=== PATIENT | female | born 1940 | race Caucasian/White ===

== ENCOUNTER 2021-09-12 01:13 | Inpatient (IN) | payer MEDICARE, MEDICAID ==
[~2021-09-12] VITALS: Ht 152.4 cm; Wt 68.0 kg
[~2021-09-12 01:13] MED LIST: ACET-1017 PO; AMLO1CAP10 PO; ATOR40TA72; CALC-157 PO; CARV-50 PO; DIVA-74 PO; DOCU100C40 PO; FLUT1DIS INH; HYDR-3965 PO; LACT1TAB21 PO; LEVO50TA8 PO; LORA-657 PO; MELA5TAB12 PO; NITR0.4T51 SL; OMEP-50 PO; OMEP20CA15 PO; PARO10TA85 PO; POLY119P2 PO; PRIM50TA27 PO; ROPI3TAB PO; TRAZ-251 PO; VIT D3
[2021-09-12 01:43] LABS: BASOPHILS # (AUTO) 0.1 X10'3 (0-0.2); BASOPHILS % (AUTO) 1.3 % (0-1); EOSINOPHILS # (AUTO) 0.1 X10'3 (0-0.9); EOSINOPHILS % (AUTO) 1.7 % (0-6); HEMATOCRIT 30.7 % (35.0-45.0); HEMOGLOBIN 9.9 g/dl (12.0-16.0); LYMPHOCYTES # (AUTO) 1.8 X10'3 (1.1-4.8); LYMPHOCYTES % (AUTO) 30.4 % (21-51); MEAN CORPUSCULAR HEMOGLOBIN 24.1 PG (27.0-31.0); MEAN CORPUSCULAR HGB CONC 32.2 g/dL (33.0-36.5); MEAN PLATELET VOLUME 7.9 FL (7.4-10.4); NEUTROPHILS # (AUTO) 3.1 X10'3 (1.8-7.7); NEUTROPHILS % (AUTO) 50.6 % (42-75); PLATELET COUNT 290 X10'3 (140-440); RED CELL DISTRIBUTION WIDTH 17.7 % (11.5-14.5)
[2021-09-12 01:57] LABS: ALANINE AMINOTRANSFERASE 86 U/L (12-78); ALBUMIN 2.4 G/DL (3.4-5.0); ALBUMIN/GLOBULIN RATIO 0.5 (1.1-1.5); ALKALINE PHOSPHATASE 163 IU/L (46-116); ANION GAP 5 (8-16); ASPARTATE AMINO TRANSFERASE 96 U/L (10-37); BILIRUBIN,DIRECT 0.3 MG/DL (0-0.3); BILIRUBIN,TOTAL 0.6 MG/DL (0.1-1.0); BLOOD UREA NITROGEN 28 MG/DL (7-18); BUN/CREATININE RATIO 30.4 (6.6-38.0); CALCIUM 8.4 MG/DL (8.5-10.1); CHLORIDE 91 MMOL/L (99-107); CREATININE 0.92 MG/DL (0.40-0.90); GLUCOSE 109 MG/DL (70-104); LIPASE 353 U/L (73-393); POTASSIUM 3.6 MMOL/L (3.5-5.1); SODIUM 122 MMOL/L (135-145); TOTAL CARBON DIOXIDE 25.9 MMOL/L (24-32); TOTAL PROTEIN 6.9 G/DL (6.4-8.2); eGFR 59 ML/MIN
[2021-09-12] MEDS ORDERED: acetaminophen 325mg tablet PO ONE (02:15)
[2021-09-12 02:51] LABS: TOTAL CELLS COUNTED 100
[2021-09-12 02:52] LABS: ANISOCYTOSIS 1+; PLATELET ESTIMATE NORMAL; POIKILOCYTOSIS 1+
[2021-09-12] MEDS ORDERED: morphine 4 MG/ML inj SYRINge IV ONE (03:00)
[2021-09-12] MEDS ORDERED: ondansetron/PF 4mg/2ml inj IV ONE (03:00)
[2021-09-12] MEDS ORDERED: normal saline 1000ml 1,000 ML IV ONE (03:00)
--- NOTE | 2021-09-12 03:00 | NUR ---
Patient's brief changed as it was soaked with urine. Patient cleaned into new brief, gown, and blue zoran placed underneath.
[2021-09-12] MEDS ORDERED: iohexol 350MG/ML 100ml bottle IV ONE (03:23)
--- NOTE | 2021-09-12 04:25 | NUR ---
Patient is comfortable and relaxed in room. Patient had stated experiencing 10/10 generalized pain, doctor notified and order given for morphine, zofran, and fluid replacement. Medications given. Patient's vital signs have been stable and monitored Q15 per stroke protocol. Will continue to monitor.
[2021-09-12] MEDS ORDERED: PER5325T PO (05:14)
[2021-09-12] MEDS ORDERED: CARV-50 PO (05:14)
[2021-09-12] MEDS ORDERED: CHOL400T57 PO (05:14)
[2021-09-12] MEDS ORDERED: LEVO50CA4 PO (05:14)
[2021-09-12] MEDS ORDERED: DIVA-74 PO (05:14)
[2021-09-12] MEDS ORDERED: OSC500T PO (05:14)
[2021-09-12] MEDS ORDERED: AMLO-139 PO (05:14)
[2021-09-12] MEDS ORDERED: DOCU100C40 PO (05:14)
[2021-09-12] MEDS ORDERED: ATOR40TA PO (05:14)
[2021-09-12] MEDS ORDERED: LORA10TA7 PO (05:14)
[2021-09-12] MEDS ORDERED: ROPI1TAB6 PO (05:14)
[2021-09-12] MEDS ORDERED: ASPI-1265 PO (05:14)
[2021-09-12] MEDS ORDERED: PRIM50TA27 PO (05:14)
[2021-09-12] MEDS ORDERED: MELA5TAB12 PO (05:14)
[2021-09-12] MEDS ORDERED: TRAZ150T78 PO (05:14)
[2021-09-12] MEDS ORDERED: PARO10TA85 PO (05:14)
[2021-09-12] MEDS ORDERED: POLY17PO10 PO (05:32)
[2021-09-12] MEDS ORDERED: FAMO20TA8 PO (05:32)
[2021-09-12] MEDS ORDERED: PRED5DRO23 RIGHTEYE (05:32)
[2021-09-12] MEDS ORDERED: NITR0.4T51 SL (05:32)
[2021-09-12] MEDS ORDERED: OMEP40CA21 PO (05:32)
[2021-09-12] MEDS ORDERED: FLUT1DIS20 INH (05:32)
[2021-09-12] MEDS ORDERED: mag hydrox/Alum hydrox/simeth 30ml oral suspension PO PRN (06:00)
[2021-09-12] MEDS ORDERED: bisacodyl 10mg suppository rectal RC PRN (06:00)
[2021-09-12] MEDS ORDERED: diphenhydrAMINE 50 mg/ml inj IV PRN (06:00)
[2021-09-12] MEDS ORDERED: ondansetron 4mg rapidly disintigrating tab PO PRN (06:00)
[2021-09-12] MEDS ORDERED: acetaminophen 325mg tablet PO PRN ×2 (06:00)
[2021-09-12] MEDS ORDERED: morphine 2 MG/ML inj. syringe IV PRN (06:00)
[2021-09-12] MEDS ORDERED: magnesium hydroxide 30ml (MOM) UD suspension PO PRN (06:00)
[2021-09-12] MEDS ORDERED: diphenhydrAMINE 25mg capsule PO PRN (06:00)
[2021-09-12 06:42] LABS: CLARITY,URINE SLIGHTLY CLOUDY (Clear); COLOR,URINE STRAW (Yellow); PROTEIN,URINE NEGATIVE (Neg); UA COLLECTION TYPE STRAIGHT CATH
[2021-09-12 06:43] LABS: GLUCOSE, URINE NEGATIVE (Neg); KETONES,URINE NEGATIVE (Neg); LEUKOCYTE ESTERASE ,URINE NEGATIVE (Neg); NITRITES, URINE POSITIVE (Neg); OCCULT BLOOD,URINE NEGATIVE (Neg); UROBILINOGEN,URINE 0.2 E.U/dL (0.2-1.0)
[2021-09-12 06:46] LABS: HEMOGLOBIN A1C 4.8 % (4.5-6.2)
[2021-09-12 06:48] LABS: BACTERIA,URINE 3+ /HPF (Neg); RBC,URINE 0-2 /HPF (0-2); SQUAMOUS EPITHELIAL CELL,UR FEW /LPF (FEW); WBC,URINE 0-4 /HPF (0-4)
[2021-09-12 07:02] LABS: CREATINE KINASE 138 U/L (26-192); PHOSPHORUS 2.5 MG/DL (2.3-4.5); VALPROATE 32 UG/ML (50-100)
[2021-09-12 07:23] LABS: PARTIAL THROMBOPLASTIN TIME 26 SECONDS (22-32)
[2021-09-12] MEDS: pantoprazole 40mg Tablet.DR PO SCH (07:30)
[2021-09-12] MEDS: docusate sod 100mg capsule PO SCH ×2 (08:00→08:55)
[2021-09-12] MEDS: heparin, porcine 5000 units/ml vial SQ SCH (08:55)
--- NOTE | 2021-09-12 09:00 | NUR ---
Pure wick in place for patient comfort, hygiene provided, patient repositioned, tolerated well, all safety measures in place.
[2021-09-12] MEDS: normal saline 1000ml 1,000 ML IV SCH ×2 (09:04→16:00)
--- NOTE | 2021-09-12 10:52 | NUR ---
dr obrien at bedside.
[2021-09-12] MEDS ORDERED: ROPI3TAB4 PO (12:29)
[2021-09-12] MEDS ORDERED: METO-292 PO (12:29)
[2021-09-12] MEDS ORDERED: OMEP20CA15 PO (12:29)
[2021-09-12] MEDS: morphine 2 MG/ML inj. syringe IV PRN (14:36)
[2021-09-12] MEDS ORDERED: AMLO-708 PO (14:37)
[2021-09-12] MEDS ORDERED: BENA40TA90 PO (14:37)
[2021-09-12] MEDS ORDERED: nitroGLYCERIN 0.4mg SUBLingual tab SL PRN (20:20)
[2021-09-12] MEDS ORDERED: polyethylene glycol 3350 17gm powd pack PO PRN (20:20)
[2021-09-12 21:00] VITALS: BP 110/50
[2021-09-12] MEDS: budesonide 0.5mg/2ml UD nebule IH SCH (21:00)
[2021-09-12] MEDS: albuterol 2.5 MG/3 ML nebule NEB SCH (21:00)
[2021-09-12] MEDS ORDERED: temazepam 15mg capsule PO PRN (21:00)
[2021-09-12] MEDS: ROPINIRole 1mg tablet PO SCH (21:00)
[2021-09-12] MEDS ORDERED: ROPINIRole 1mg tablet PO ONE (23:45)
[2021-09-12] MEDS: traZODone 150mg tablet PO SCH (23:59)
[2021-09-12] MEDS: metoclopramide 10mg tablet PO SCH (23:59)
[2021-09-13] VITALS (8 sets, daily range): BP systolic 80–155; BP diastolic 38–67
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
[2021-09-13] MEDS: heparin, porcine 5000 units/ml vial SQ SCH ×3 (00:01→20:06)
[2021-09-13] MEDS: normal saline 1000ml 1,000 ML IV SCH ×3 (02:00→22:58)
[2021-09-13 06:25] LABS: BASOPHILS # (AUTO) 0.1 X10'3 (0-0.2); BASOPHILS % (AUTO) 1.3 % (0-1); EOSINOPHILS # (AUTO) 0.1 X10'3 (0-0.9); EOSINOPHILS % (AUTO) 2.5 % (0-6); HEMATOCRIT 27.5 % (35.0-45.0); HEMOGLOBIN 8.8 g/dl (12.0-16.0); LYMPHOCYTES # (AUTO) 1.9 X10'3 (1.1-4.8); LYMPHOCYTES % (AUTO) 35.8 % (21-51); MEAN CORPUSCULAR HEMOGLOBIN 24.8 PG (27.0-31.0); MEAN CORPUSCULAR VOLUME 77.4 FL (78-98); MEAN PLATELET VOLUME 7.1 FL (7.4-10.4); MONOCYTES # (AUTO) 0.8 X10'3 (0-0.9); MONOCYTES % (AUTO) 15.6 % (2-12); NEUTROPHILS # (AUTO) 2.4 X10'3 (1.8-7.7); NEUTROPHILS % (AUTO) 44.8 % (42-75); PLATELET COUNT 282 X10'3 (140-440); RED BLOOD COUNT 3.56 X10'6 (4.20-5.60); RED CELL DISTRIBUTION WIDTH 18.3 % (11.5-14.5); WHITE BLOOD COUNT 5.4 X10'3 (4.5-11.0)
[2021-09-13] MEDS: HYDROcodone/acetaminophen 5mg/325mg tablet PO PRN ×3 (06:45→11:44)
--- NOTE | 2021-09-13 06:48 | NUR ---
Patient in room JERED 344. I have received report from NABILA LOPEZ and had the opportunity to ask questions and assume patient care.
[2021-09-13] MEDS ORDERED: non-formulary drug (Omeprazole 1 CAP) PO SCH (08:00)
[2021-09-13] MEDS ORDERED: non-formulary drug (Fluticasone/Salmeterol (Advair 250-50 Diskus) 1 PUFFS) INH SCH (08:00)
[2021-09-13] MEDS: atorvastatin 20mg tablet PO SCH (08:01)
[2021-09-13] MEDS: PARoxetine 10mg tablet PO SCH (08:02)
[2021-09-13] MEDS: calcium carbonate 500mg tablet PO SCH ×2 (08:03→20:05)
[2021-09-13] MEDS: loratadine 10mg tablet PO SCH (08:05)
[2021-09-13] MEDS: docusate sod 100mg capsule PO SCH ×4 (08:05→20:00)
[2021-09-13] MEDS: amLODIPine 5mg tablet PO SCH (08:06)
[2021-09-13] MEDS: famotidine 20mg tablet PO SCH ×2 (08:06→20:04)
[2021-09-13] MEDS: pantoprazole 40mg Tablet.DR PO SCH (08:08)
[2021-09-13] MEDS: carVEDilol 12.5mg tablet PO SCH ×2 (08:08→20:00)
[2021-09-13] MEDS: lisinopril 20mg tablet PO SCH (08:08)
[2021-09-13] MEDS: levoTHYROXINE 25mcg tablet PO SCH (08:09)
[2021-09-13] MEDS: aspirin 81mg tab.chew PO SCH (08:09)
[2021-09-13] MEDS: prednisoLONE acetate 1% ophth susp 5ml RIGHTEYE SCH ×2 (08:11→20:10)
[2021-09-13] MEDS: divalproex 250mg tablet, delayed-release PO SCH ×2 (08:13→20:04)
[2021-09-13] MEDS: primidone 50mg tablet PO SCH ×4 (08:13→23:26)
[2021-09-13] MEDS: budesonide 0.5mg/2ml UD nebule IH SCH ×2 (08:47→20:53)
[2021-09-13 09:27] LABS: TOTAL CELLS COUNTED 100
[2021-09-13 09:28] LABS: ANISOCYTOSIS 2+; MICROCYTOSIS 1+; PLATELET ESTIMATE NORMAL
[2021-09-13 09:31] LABS: ALANINE AMINOTRANSFERASE 76 U/L (12-78); ALBUMIN 2.1 G/DL (3.4-5.0); ALBUMIN/GLOBULIN RATIO 0.5 (1.1-1.5); ALKALINE PHOSPHATASE 97 IU/L (46-116); ANION GAP 6 (8-16); ASPARTATE AMINO TRANSFERASE 104 U/L (10-37); BILIRUBIN,TOTAL 0.6 MG/DL (0.1-1.0); BLOOD UREA NITROGEN 18 MG/DL (7-18); BUN/CREATININE RATIO 17.8 (6.6-38.0); CALCIUM 7.9 MG/DL (8.5-10.1); CHLORIDE 103 MMOL/L (99-107); CHOLESTEROL 99 MG/DL (0-200); CREATININE 1.01 MG/DL (0.40-0.90); GLUCOSE 90 MG/DL (70-104); HDL CHOLESTEROL 49 MG/DL (35-60); LDL CHOLESTEROL 41 MG/DL (50-100); POTASSIUM 3.7 MMOL/L (3.5-5.1); SODIUM 135 MMOL/L (135-145); TOTAL CARBON DIOXIDE 25.9 MMOL/L (24-32); TOTAL PROTEIN 6.2 G/DL (6.4-8.2); TRIGLYCERIDES 46 MG/DL (20-135); eGFR 53 ML/MIN
--- NOTE | 2021-09-13 11:19 | NUR ---
PAGER ID: [phone] MESSAGE: polina fuentes [phone] re: Padmini cuellarb. Pt requesting to be a DNR.
[2021-09-13] MEDS: albuterol 2.5 MG/3 ML nebule NEB SCH ×2 (14:05→20:53)
--- NOTE | 2021-09-13 16:24 | NUR ---
Pt requesting to be made a DNR notified. will continue to monitor
--- NOTE | 2021-09-13 17:00 | NUR ---
Pt has 2 large bm's this am shift. Pt is A&O x4 majority of AM shift however patient has moments of confusion/drowsiness and neuro assessment is difficult to perform. Pts answers to questions tend to vary, are not always consistent. MD notified of patients wishes to be a DNR. Primary RN will continue to monitor
--- NOTE | 2021-09-13 18:33 | NUR ---
Problems reprioritized. Patient report given, questions answered & plan of care reviewed with félix fuentes .
[2021-09-13] MEDS: traZODone 150mg tablet PO SCH (20:01)
[2021-09-13] MEDS: ROPINIRole 1mg tablet PO SCH (20:02)
[2021-09-13] MEDS: Melatonin 3mg tablet PO SCH ×2 (20:04)
[2021-09-13] MEDS: metoclopramide 10mg tablet PO SCH (20:10)
[2021-09-14] VITALS: BP 137/80
[2021-09-14] MEDS: HYDROcodone/acetaminophen 5mg/325mg tablet PO PRN ×3 (02:08→20:21)
[2021-09-14] MEDS: albuterol 2.5 MG/3 ML nebule NEB SCH ×4 (03:12→19:53)
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
[2021-09-14 06:29] LABS: LYMPHOCYTES # (AUTO) 1.7 X10'3 (1.1-4.8); MONOCYTES # (AUTO) 0.7 X10'3 (0-0.9); NEUTROPHILS # (AUTO) 2.2 X10'3 (1.8-7.7); NEUTROPHILS % (AUTO) 44.3 % (42-75); RED BLOOD COUNT 3.55 X10'6 (4.20-5.60); WHITE BLOOD COUNT 4.9 X10'3 (4.5-11.0)
[2021-09-14 06:31] LABS: BASOPHILS # (AUTO) 0.1 X10'3 (0-0.2); BASOPHILS % (AUTO) 2.5 % (0-1); EOSINOPHILS # (AUTO) 0.1 X10'3 (0-0.9); HEMOGLOBIN 8.7 g/dl (12.0-16.0); LYMPHOCYTES % (AUTO) 35.3 % (21-51); MEAN CORPUSCULAR HEMOGLOBIN 24.5 PG (27.0-31.0); MEAN CORPUSCULAR HGB CONC 32.2 g/dL (33.0-36.5); MONOCYTES % (AUTO) 14.9 % (2-12); PLATELET COUNT 273 X10'3 (140-440); RED CELL DISTRIBUTION WIDTH 18.6 % (11.5-14.5)
--- NOTE | 2021-09-14 06:36 | NUR ---
Patient in room JERED 344. I have received report from Panchito LOPEZ and had the opportunity to ask questions and assume patient care.
[2021-09-14 06:55] LABS: ALANINE AMINOTRANSFERASE 66 U/L (12-78); ALBUMIN 1.8 G/DL (3.4-5.0); ALBUMIN/GLOBULIN RATIO 0.5 (1.1-1.5); ALKALINE PHOSPHATASE 93 IU/L (46-116); ANION GAP 5 (8-16); ASPARTATE AMINO TRANSFERASE 77 U/L (10-37); BILIRUBIN,TOTAL 0.3 MG/DL (0.1-1.0); BLOOD UREA NITROGEN 16 MG/DL (7-18); BUN/CREATININE RATIO 17.4 (6.6-38.0); CHLORIDE 107 MMOL/L (99-107); CREATININE 0.92 MG/DL (0.40-0.90); GLUCOSE 71 MG/DL (70-104); POTASSIUM 3.9 MMOL/L (3.5-5.1); SODIUM 136 MMOL/L (135-145); TOTAL CARBON DIOXIDE 23.7 MMOL/L (24-32); TOTAL PROTEIN 5.4 G/DL (6.4-8.2); eGFR 59 ML/MIN
[2021-09-14 07:07] LABS: ANISOCYTOSIS 2+; HYPOCHROMASIA 2+; MICROCYTOSIS 1+; PLATELET ESTIMATE NORMAL
[2021-09-14 07:08] LABS: STOMATOCYTES FEW
[2021-09-14] MEDS: budesonide 0.5mg/2ml UD nebule IH SCH ×2 (07:45→19:53)
[2021-09-14 08:00] VITALS: BP 124/65
[2021-09-14] MEDS: lisinopril 20mg tablet PO SCH (08:00)
[2021-09-14] MEDS: docusate sod 100mg capsule PO SCH ×4 (08:00→20:33)
[2021-09-14] MEDS: amLODIPine 5mg tablet PO SCH (08:13)
[2021-09-14] MEDS: PARoxetine 10mg tablet PO SCH (08:13)
[2021-09-14] MEDS: heparin, porcine 5000 units/ml vial SQ SCH ×2 (08:13→20:19)
[2021-09-14] MEDS: primidone 50mg tablet PO SCH ×2 (08:14→16:06)
[2021-09-14] MEDS: levoTHYROXINE 25mcg tablet PO SCH (08:14)
[2021-09-14] MEDS: calcium carbonate 500mg tablet PO SCH ×2 (08:15→20:20)
[2021-09-14] MEDS: carVEDilol 12.5mg tablet PO SCH ×2 (08:15→20:20)
[2021-09-14] MEDS: pantoprazole 40mg Tablet.DR PO SCH (08:16)
[2021-09-14] MEDS: atorvastatin 20mg tablet PO SCH (08:16)
[2021-09-14] MEDS: loratadine 10mg tablet PO SCH (08:16)
[2021-09-14] MEDS: aspirin 81mg tab.chew PO SCH (08:17)
[2021-09-14] MEDS: famotidine 20mg tablet PO SCH ×2 (08:17→20:21)
[2021-09-14] MEDS: prednisoLONE acetate 1% ophth susp 5ml RIGHTEYE SCH ×2 (08:18→20:33)
[2021-09-14] MEDS: normal saline 1000ml 1,000 ML IV SCH ×2 (08:18→20:18)
[2021-09-14] MEDS: divalproex 250mg tablet, delayed-release PO SCH ×2 (08:31→20:19)
[2021-09-14] MEDS ORDERED: levoFLOXACIN-Levaquin 500mg/D5 100 ML IV ONE (09:05)
[2021-09-14 11:00] VITALS: BP 94/44
[2021-09-14 12:03] VITALS: BP 94/44
[2021-09-14 14:18] VITALS: BP 94/52
--- NOTE | 2021-09-14 14:43 | NUR ---
PAGER ID: [phone] MESSAGE: Anyi LOPEZ [phone] RE: Pt requesting Voltaren cream, also wishes to be a DNR. Thank you
--- NOTE | 2021-09-14 15:01 | NUR ---
MD notified by primary RN of patients wishes to be a DNR. Will continue to monitor patient.
[2021-09-14] MEDS: methyl salicylate/menthol cream 57gm TP SCH ×2 (16:28→20:33)
--- NOTE | 2021-09-14 18:53 | NUR ---
Problems reprioritized. Patient report given, questions answered & plan of care reviewed with félix fuentes.
[2021-09-14 19:00] VITALS: BP 146/53
[2021-09-14] MEDS: Melatonin 3mg tablet PO SCH (20:19)
[2021-09-14] MEDS: metoclopramide 10mg tablet PO SCH (20:19)
[2021-09-14] MEDS: ROPINIRole 1mg tablet PO SCH (20:19)
[2021-09-14] MEDS: traZODone 150mg tablet PO SCH (20:20)
[2021-09-14] MEDS: ceFAZolin/D5W- 1GM premix 50 ML IV SCH (22:59)
[2021-09-15] VITALS: BP 143/54
[2021-09-15] MEDS: primidone 50mg tablet PO SCH ×4 (00:58→23:52)
[2021-09-15] MEDS: HYDROcodone/acetaminophen 5mg/325mg tablet PO PRN ×6 (00:59→23:52)
[2021-09-15] MEDS: albuterol 2.5 MG/3 ML nebule NEB SCH ×4 (02:48→20:45)
[2021-09-15] MEDS: normal saline 1000ml 1,000 ML IV SCH ×3 (04:47→23:50)
--- NOTE | 2021-09-15 06:41 | NUR ---
Patient in room JERED 344. I have received report from félix fuentes and had the opportunity to ask questions and assume patient care.
[2021-09-15 06:43] LABS: BASOPHILS # (AUTO) 0.1 X10'3 (0-0.2); BASOPHILS % (AUTO) 1.2 % (0-1); EOSINOPHILS # (AUTO) 0.1 X10'3 (0-0.9); EOSINOPHILS % (AUTO) 2.7 % (0-6); HEMATOCRIT 27.6 % (35.0-45.0); LYMPHOCYTES # (AUTO) 1.8 X10'3 (1.1-4.8); LYMPHOCYTES % (AUTO) 36.1 % (21-51); MEAN CORPUSCULAR HEMOGLOBIN 24.7 PG (27.0-31.0); MEAN CORPUSCULAR HGB CONC 32.7 g/dL (33.0-36.5); MEAN CORPUSCULAR VOLUME 75.7 FL (78-98); MEAN PLATELET VOLUME 7.1 FL (7.4-10.4); MONOCYTES # (AUTO) 0.7 X10'3 (0-0.9); MONOCYTES % (AUTO) 13.2 % (2-12); NEUTROPHILS # (AUTO) 2.4 X10'3 (1.8-7.7); NEUTROPHILS % (AUTO) 46.8 % (42-75); PLATELET COUNT 291 X10'3 (140-440); RED BLOOD COUNT 3.64 X10'6 (4.20-5.60); RED CELL DISTRIBUTION WIDTH 18.9 % (11.5-14.5); WHITE BLOOD COUNT 5.1 X10'3 (4.5-11.0)
[2021-09-15 06:54] LABS: ALANINE AMINOTRANSFERASE 63 U/L (12-78); ALBUMIN 1.8 G/DL (3.4-5.0); ALBUMIN/GLOBULIN RATIO 0.5 (1.1-1.5); ALKALINE PHOSPHATASE 89 IU/L (46-116); ANION GAP 6 (8-16); ASPARTATE AMINO TRANSFERASE 70 U/L (10-37); BILIRUBIN,TOTAL 0.4 MG/DL (0.1-1.0); BLOOD UREA NITROGEN 13 MG/DL (7-18); BUN/CREATININE RATIO 17.1 (6.6-38.0); CALCIUM 8.2 MG/DL (8.5-10.1); CHLORIDE 106 MMOL/L (99-107); CREATININE 0.76 MG/DL (0.40-0.90); GLUCOSE 71 MG/DL (70-104); POTASSIUM 3.7 MMOL/L (3.5-5.1); SODIUM 135 MMOL/L (135-145); TOTAL PROTEIN 5.6 G/DL (6.4-8.2); eGFR 74 ML/MIN
[2021-09-15 08:00] VITALS: BP 149/58
[2021-09-15] MEDS: docusate sod 100mg capsule PO SCH ×4 (08:00→20:25)
[2021-09-15] MEDS: aspirin 81mg tab.chew PO SCH (08:00)
[2021-09-15] MEDS: amLODIPine 5mg tablet PO SCH (08:00)
[2021-09-15] MEDS: lisinopril 20mg tablet PO SCH (08:00)
[2021-09-15] MEDS: carVEDilol 12.5mg tablet PO SCH ×2 (08:00→20:17)
[2021-09-15 08:12] LABS: ANISOCYTOSIS 2+; HYPOCHROMASIA 1+; MICROCYTOSIS 1+; PLATELET ESTIMATE NORMAL; POLYCHROMASIA 1+
[2021-09-15 08:13] LABS: TARGET CELLS 1+
[2021-09-15] MEDS: budesonide 0.5mg/2ml UD nebule IH SCH ×2 (09:00→20:45)
[2021-09-15] MEDS: ceFAZolin/D5W- 1GM premix 50 ML IV SCH ×2 (09:06→20:15)
[2021-09-15] MEDS: prednisoLONE acetate 1% ophth susp 5ml RIGHTEYE SCH ×2 (09:07→20:17)
[2021-09-15] MEDS: calcium carbonate 500mg tablet PO SCH ×2 (09:08→20:17)
[2021-09-15] MEDS: famotidine 20mg tablet PO SCH ×2 (09:08→20:18)
[2021-09-15] MEDS: loratadine 10mg tablet PO SCH (09:09)
[2021-09-15] MEDS: heparin, porcine 5000 units/ml vial SQ SCH ×2 (09:09→20:19)
[2021-09-15] MEDS: pantoprazole 40mg Tablet.DR PO SCH (09:09)
[2021-09-15] MEDS: divalproex 250mg tablet, delayed-release PO SCH ×2 (09:10→20:17)
[2021-09-15] MEDS: levoTHYROXINE 25mcg tablet PO SCH (09:10)
[2021-09-15] MEDS: methyl salicylate/menthol cream 57gm TP SCH ×3 (09:10→20:18)
[2021-09-15] MEDS: atorvastatin 20mg tablet PO SCH (09:11)
[2021-09-15] MEDS: PARoxetine 10mg tablet PO SCH (09:11)
[2021-09-15] MEDS: ondansetron/PF 4mg/2ml inj IV PRN (09:29)
[2021-09-15 11:00] VITALS: BP 112/54
--- NOTE | 2021-09-15 17:10 | NUR ---
Pt is pleasant but continues to c/o generalized right sided pain very frequently. Pt worked with PT today, agreeable to sit in the chair for approx 1.5 hours. Pt agreeable to q2h repositioning. Will continue to monitor
--- NOTE | 2021-09-15 18:31 | NUR ---
PAGER ID: [phone] MESSAGE: Anyi fuentes [phone] re: Sarah Huitron 357b. Pt requesting to take home suboxone, may we d/c Simon and add Toradol. THANK YOU!
[2021-09-15] MEDS: Melatonin 3mg tablet PO SCH (20:16)
[2021-09-15] MEDS: metoclopramide 10mg tablet PO SCH (20:17)
[2021-09-15] MEDS: ROPINIRole 1mg tablet PO SCH (20:18)
[2021-09-15] MEDS: traZODone 150mg tablet PO SCH (20:20)
[2021-09-15 23:08] VITALS: BP 168/150
--- NOTE | 2021-09-15 23:15 | NUR ---
1900 vitals entered as 2304 vitals in error. Unable to change time in flowsheet section of chart
[2021-09-16] VITALS: BP 126/73
[2021-09-16] MEDS: albuterol 2.5 MG/3 ML nebule NEB SCH ×4 (02:23→20:22)
[2021-09-16] MEDS: HYDROcodone/acetaminophen 5mg/325mg tablet PO PRN ×4 (03:42→22:53)
[2021-09-16 05:51] LABS: BASOPHILS # (AUTO) 0.1 X10'3 (0-0.2); BASOPHILS % (AUTO) 1.3 % (0-1); EOSINOPHILS # (AUTO) 0.4 X10'3 (0-0.9); EOSINOPHILS % (AUTO) 7.2 % (0-6); HEMATOCRIT 28.5 % (35.0-45.0); HEMOGLOBIN 9.1 g/dl (12.0-16.0); LYMPHOCYTES # (AUTO) 1.9 X10'3 (1.1-4.8); LYMPHOCYTES % (AUTO) 35.7 % (21-51); MEAN CORPUSCULAR HEMOGLOBIN 24.6 PG (27.0-31.0); MEAN CORPUSCULAR HGB CONC 31.9 g/dL (33.0-36.5); MEAN CORPUSCULAR VOLUME 77.1 FL (78-98); MEAN PLATELET VOLUME 7.5 FL (7.4-10.4); MONOCYTES # (AUTO) 0.8 X10'3 (0-0.9); MONOCYTES % (AUTO) 14.8 % (2-12); NEUTROPHILS # (AUTO) 2.2 X10'3 (1.8-7.7); PLATELET COUNT 275 X10'3 (140-440); RED CELL DISTRIBUTION WIDTH 19.5 % (11.5-14.5); WHITE BLOOD COUNT 5.2 X10'3 (4.5-11.0)
[2021-09-16 06:24] LABS: ALANINE AMINOTRANSFERASE 61 U/L (12-78); ALBUMIN 1.7 G/DL (3.4-5.0); ALBUMIN/GLOBULIN RATIO 0.5 (1.1-1.5); ALKALINE PHOSPHATASE 84 IU/L (46-116); ANION GAP 8 (8-16); ASPARTATE AMINO TRANSFERASE 75 U/L (10-37); BILIRUBIN,TOTAL 0.3 MG/DL (0.1-1.0); BLOOD UREA NITROGEN 11 MG/DL (7-18); BUN/CREATININE RATIO 16.9 (6.6-38.0); CALCIUM 7.8 MG/DL (8.5-10.1); CHLORIDE 105 MMOL/L (99-107); CREATININE 0.65 MG/DL (0.40-0.90); GLUCOSE 66 MG/DL (70-104); POTASSIUM 3.7 MMOL/L (3.5-5.1); SODIUM 136 MMOL/L (135-145); TOTAL CARBON DIOXIDE 23.3 MMOL/L (24-32); TOTAL PROTEIN 5.3 G/DL (6.4-8.2); eGFR 88 ML/MIN
[2021-09-16 07:00] VITALS: BP 146/45
[2021-09-16] MEDS: methyl salicylate/menthol cream 57gm TP SCH ×3 (08:00→20:29)
[2021-09-16] MEDS: docusate sod 100mg capsule PO SCH ×3 (08:00→20:26)
[2021-09-16] MEDS: budesonide 0.5mg/2ml UD nebule IH SCH ×2 (09:00→20:20)
[2021-09-16] MEDS: normal saline 1000ml 1,000 ML IV SCH (10:00)
[2021-09-16 10:08] VITALS: BP 128/64
[2021-09-16] MEDS: ceFAZolin/D5W- 1GM premix 50 ML IV SCH ×2 (10:10→20:24)
[2021-09-16] MEDS: levoTHYROXINE 25mcg tablet PO SCH (10:17)
[2021-09-16] MEDS: lisinopril 20mg tablet PO SCH (10:19)
[2021-09-16] MEDS: amLODIPine 5mg tablet PO SCH (10:20)
[2021-09-16] MEDS: aspirin 81mg tab.chew PO SCH (10:22)
[2021-09-16] MEDS: famotidine 20mg tablet PO SCH ×2 (10:22→20:25)
[2021-09-16] MEDS: atorvastatin 20mg tablet PO SCH (10:23)
[2021-09-16] MEDS: carVEDilol 12.5mg tablet PO SCH ×2 (10:23→20:25)
[2021-09-16] MEDS: primidone 50mg tablet PO SCH ×2 (10:24→16:58)
[2021-09-16] MEDS: pantoprazole 40mg Tablet.DR PO SCH (10:24)
[2021-09-16] MEDS: loratadine 10mg tablet PO SCH (10:25)
[2021-09-16] MEDS: divalproex 250mg tablet, delayed-release PO SCH ×2 (10:25→20:26)
[2021-09-16] MEDS: calcium carbonate 500mg tablet PO SCH ×2 (10:27→20:25)
[2021-09-16] MEDS: PARoxetine 10mg tablet PO SCH (10:28)
[2021-09-16] MEDS: prednisoLONE acetate 1% ophth susp 5ml RIGHTEYE SCH ×2 (10:29→20:29)
[2021-09-16] MEDS: heparin, porcine 5000 units/ml vial SQ SCH ×2 (10:38→20:29)
[2021-09-16 11:00] VITALS: BP 128/64
[2021-09-16] MEDS ORDERED: docusate sod 100mg capsule PO ONE (11:45)
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
[2021-09-16 18:00] VITALS: BP 116/50
--- NOTE | 2021-09-16 19:03 | NUR ---
Report given to Liz LOPEZ, all questions answered. vice president of consulting services will need to get involved in AM for assistance with care facility issues.
[2021-09-16] MEDS: metoclopramide 10mg tablet PO SCH (20:25)
[2021-09-16] MEDS: Melatonin 3mg tablet PO SCH (20:26)
[2021-09-16] MEDS: traZODone 150mg tablet PO SCH (20:29)
[2021-09-16] MEDS: ROPINIRole 1mg tablet PO SCH (20:29)
[2021-09-16 22:00] VITALS: BP 116/50
[2021-09-17] VITALS: BP 133/62
[2021-09-17] MEDS: normal saline 1000ml 1,000 ML IV SCH (01:31)
[2021-09-17] MEDS: morphine 2 MG/ML inj. syringe IV PRN (01:32)
[2021-09-17] MEDS: primidone 50mg tablet PO SCH ×2 (01:32→10:52)
[2021-09-17] MEDS: albuterol 2.5 MG/3 ML nebule NEB SCH ×3 (03:22→15:54)
--- NOTE | 2021-09-17 06:21 | NUR ---
Problems reprioritized. Patient report given, questions answered & plan of care reviewed with JESSICA Murphy. Student documentation: I have reviewed and agree with all interventions, assessments performed and documented by Sandoval Jacinto Nurse. Student Medication Administration: For this medication-pass time frame, all medication were reviewed, dispensed, administered and documented per hospital policy by Sandoval Jacinto Nurse.
[2021-09-17 06:26] LABS: BASOPHILS % (AUTO) 0.6 % (0-1); EOSINOPHILS # (AUTO) 0.5 X10'3 (0-0.9); EOSINOPHILS % (AUTO) 10.3 % (0-6); HEMATOCRIT 30.7 % (35.0-45.0); HEMOGLOBIN 9.7 g/dl (12.0-16.0); LYMPHOCYTES # (AUTO) 1.8 X10'3 (1.1-4.8); LYMPHOCYTES % (AUTO) 35.2 % (21-51); MEAN CORPUSCULAR HEMOGLOBIN 24.5 PG (27.0-31.0); MEAN CORPUSCULAR HGB CONC 31.7 g/dL (33.0-36.5); MEAN CORPUSCULAR VOLUME 77.2 FL (78-98); MEAN PLATELET VOLUME 7.6 FL (7.4-10.4); MONOCYTES # (AUTO) 0.8 X10'3 (0-0.9); NEUTROPHILS % (AUTO) 38.9 % (42-75); PLATELET COUNT 246 X10'3 (140-440); RED BLOOD COUNT 3.98 X10'6 (4.20-5.60); RED CELL DISTRIBUTION WIDTH 19.5 % (11.5-14.5); WHITE BLOOD COUNT 5.2 X10'3 (4.5-11.0)
[2021-09-17 07:00] VITALS: BP 113/68
[2021-09-17 07:00] LABS: ALBUMIN 1.7 G/DL (3.4-5.0); ANION GAP 8 (8-16); BILIRUBIN,TOTAL 0.3 MG/DL (0.1-1.0); BLOOD UREA NITROGEN 13 MG/DL (7-18); CHLORIDE 108 MMOL/L (99-107); CREATININE 0.59 MG/DL (0.40-0.90); GLUCOSE 63 MG/DL (70-104); POTASSIUM 3.7 MMOL/L (3.5-5.1); SODIUM 138 MMOL/L (135-145); TOTAL CARBON DIOXIDE 21.9 MMOL/L (24-32); TOTAL PROTEIN 5.4 G/DL (6.4-8.2); eGFR > 90 ML/MIN
[2021-09-17 07:01] LABS: ALANINE AMINOTRANSFERASE 66 U/L (12-78); ALBUMIN/GLOBULIN RATIO 0.5 (1.1-1.5); ALKALINE PHOSPHATASE 99 IU/L (46-116); ASPARTATE AMINO TRANSFERASE 90 U/L (10-37)
--- NOTE | 2021-09-17 07:30 | NUR ---
Patient in room JERED 344B. I have received report from JESSICA DUQUE & DAVIN HUDSON and had the opportunity to ask questions and assume patient care.
[2021-09-17] MEDS: ondansetron/PF 4mg/2ml inj IV PRN (07:47)
[2021-09-17] MEDS ORDERED: dextrose 50%-water 50ml dispensing syringe IV PRN ×2 (07:50)
[2021-09-17] MEDS ORDERED: dextrose ORAL solution 15 GM/59 ML bottle PO PRN ×2 (07:50)
[2021-09-17] MEDS: lisinopril 20mg tablet PO SCH (08:00)
[2021-09-17] MEDS: carVEDilol 12.5mg tablet PO SCH (08:00)
[2021-09-17 08:03] LABS: ANISOCYTOSIS 2+; HYPOCHROMASIA 2+; LARGE PLATELETS FEW; MICROCYTOSIS 1+; PLATELET ESTIMATE NORMAL
[2021-09-17] MEDS: budesonide 0.5mg/2ml UD nebule IH SCH (08:15)
[2021-09-17] MEDS: amLODIPine 5mg tablet PO SCH (10:50)
[2021-09-17] MEDS: PARoxetine 10mg tablet PO SCH (10:51)
[2021-09-17] MEDS: calcium carbonate 500mg tablet PO SCH (10:51)
[2021-09-17] MEDS: docusate sod 100mg capsule PO SCH (10:52)
[2021-09-17] MEDS: loratadine 10mg tablet PO SCH (10:52)
[2021-09-17] MEDS: aspirin 81mg tab.chew PO SCH (10:52)
[2021-09-17] MEDS: atorvastatin 20mg tablet PO SCH (10:52)
[2021-09-17] MEDS: divalproex 250mg tablet, delayed-release PO SCH (10:53)
[2021-09-17] MEDS: levoTHYROXINE 25mcg tablet PO SCH (10:53)
--- NOTE | 2021-09-17 10:58 | NUR ---
Received a phone call from Judy from [facility] asking to speak with the patient. I told her that per report patient did not want her to receive any information about the patient. Judy states "Oh the nurse last night gave me permission!" She asked me to clarify this with the patient. I went to patient's room and talked to the patient while the primary nurse Katherine was at the bedside. Patient states "No, I don't want to talk to her!" I asked patient if she is allowing Judy to talk to us about her condition, she repeatedly said "No!". Addendum: 09/17/21 at 1103 by Anaya Hall RN I get back to Judy and told her that patient still did not want Judy received any information about her or talk to her. So respectfully told Judy "Sorry I can't give you any information about the patient!"
[2021-09-17 11:00] VITALS: BP 104/60
[2021-09-17] MEDS: heparin, porcine 5000 units/ml vial SQ SCH (11:01)
[2021-09-17] MEDS: prednisoLONE acetate 1% ophth susp 5ml RIGHTEYE SCH (11:01)
[2021-09-17] MEDS: methyl salicylate/menthol cream 57gm TP SCH (11:05)
[2021-09-17] MEDS ORDERED: CEPH-585 PO (11:37)
--- NOTE | 2021-09-17 12:11 | NUR ---
Primary nurse Katherine notified about the discharge order for this patient. I have told her that I spoke to Nell, case filler about this patient did not want to speak to Judy [facility]vert [facility]
--- NOTE | 2021-09-17 19:15 | NUR ---
PATIENT STABLE AND APPROPRIATE FOR DISCHARGE, IV TAKEN OUT, EDUCATION GIVEN, NEW MEDS CALLED INTO PREFERRED PHARMACY, ALL BELONGINGS SENT WITH PATIENT, PATIENT SENT HOME IN HOSPITAL GOWN AND PT'S OWN SWEATER DUE TO OWN CLOTHES BEING SOILED, TAKEN TO LOBBY BY WHEELCHAIR TO AN AWAITING CAR WHERE MICKEY LAROSE WILL TAKE PATIENT HOME
== END 2021-09-17 16:35 | disposition home or self-care (01) | DRG 640 ==
LOC: ER 01:14 → ED HOLD 05:59 → SUR 3N 20:00
PROVIDERS: ADMIT Family Medicine; ATTEND Family Medicine
PROC: B3251ZZ Computerized Tomography (CT Scan) of Bilateral Common Carotid Arteries using Low Osmolar Contrast (ICD-10-PCS; principal; 2021-09-12)
PROC: B32G1ZZ Computerized Tomography (CT Scan) of Bilateral Vertebral Arteries using Low Osmolar Contrast (ICD-10-PCS; 2021-09-12)
PROC: B32R1ZZ Computerized Tomography (CT Scan) of Intracranial Arteries using Low Osmolar Contrast (ICD-10-PCS; 2021-09-12)
PROC: B3281ZZ Computerized Tomography (CT Scan) of Bilateral Internal Carotid Arteries using Low Osmolar Contrast (ICD-10-PCS; 2021-09-12)
DX: E87.1 Hypo-osmolality and hyponatremia (principal); G93.41 Metabolic encephalopathy; N39.0 Urinary tract infection, site not specified; I69.354 Hemiplegia and hemiparesis following cerebral infarction affecting left non-dominant side; E86.0 Dehydration; G20 Parkinson's disease; F02.80 Dementia in other diseases classified elsewhere, unspecified severity, without behavioral disturbance, psychotic disturbance, mood disturbance, and anxiety; B96.1 Klebsiella pneumoniae [K. pneumoniae] as the cause of diseases classified elsewhere; E03.9 Hypothyroidism, unspecified; E78.00 Pure hypercholesterolemia, unspecified; E78.5 Hyperlipidemia, unspecified; F32.A Depression, unspecified; W06.XXXA Fall from bed, initial encounter; G25.81 Restless legs syndrome; I10 Essential (primary) hypertension; K21.9 Gastro-esophageal reflux disease without esophagitis; Z66 Do not resuscitate; Z79.51 Long term (current) use of inhaled steroids; Z79.899 Other long term (current) drug therapy; Z88.5 Allergy status to narcotic agent; Z88.0 Allergy status to penicillin; Z88.8 Allergy status to other drugs, medicaments and biological substances; Z91.030 Bee allergy status; Y93.89 Activity, other specified; Y92.098 Other place in other non-institutional residence as the place of occurrence of the external cause; Y99.8 Other external cause status
CPT/HCPCS: 36415; 70450; 70496; 70498; 71045; 76700; 80048; 80053; 80061; 80076; 80164; 81001; 82550; 82948; 83036; 83605; 83690; 83735; 83880; 84100; 84443; 85007; 85008; 85025; 85610; 85730; 87077; 87081; 87088; 87186; 92508; 92616; 94640; 94760; 97110; 97116; 97162; 97530; 97535; 99285; G0378; J0690; J1644; J1956; J2270; J2405; J7030; J7626; J8597; Q9967

== ENCOUNTER 2021-09-19 09:59 | Emergency (ER) | payer MEDICARE, MEDICAID ==
[~2021-09-19] VITALS: Ht 165.1 cm; Wt 61.4 kg
[~2021-09-19 09:59] MED LIST changes: -ACET-1017 PO; +AMLO-708 PO; -AMLO1CAP10 PO; +ASPI-1265 PO; +ATOR40TA PO; -ATOR40TA72; +BENA40TA90 PO; -CALC-157 PO; +CEPH-585 PO; +CHOL400T57 PO; +FAMO20TA8 PO; -FLUT1DIS INH; +FLUT1DIS20 INH; -HYDR-3965 PO; -LACT1TAB21 PO; +LEVO50CA4 PO; -LEVO50TA8 PO; -LORA-657 PO; +LORA10TA7 PO; +METO-292 PO; -OMEP-50 PO; +OSC500T PO; +PER5325T PO; -POLY119P2 PO; +POLY17PO10 PO; +PRED5DRO23 RIGHTEYE; -ROPI3TAB PO; +ROPI3TAB4 PO; -TRAZ-251 PO; +TRAZ150T78 PO; -VIT D3
[2021-09-19 10:06] VITALS: BP 127/63
[2021-09-19 10:56] LABS: BASOPHILS # (AUTO) 0.1 X10'3 (0-0.2); BASOPHILS % (AUTO) 1.4 % (0-1); EOSINOPHILS # (AUTO) 0.3 X10'3 (0-0.9); EOSINOPHILS % (AUTO) 5.2 % (0-6); HEMATOCRIT 29.8 % (35.0-45.0); HEMOGLOBIN 9.7 g/dl (12.0-16.0); LYMPHOCYTES # (AUTO) 1.4 X10'3 (1.1-4.8); LYMPHOCYTES % (AUTO) 25.6 % (21-51); MEAN CORPUSCULAR HEMOGLOBIN 24.6 PG (27.0-31.0); MEAN CORPUSCULAR HGB CONC 32.5 g/dL (33.0-36.5); MEAN CORPUSCULAR VOLUME 75.9 FL (78-98); MEAN PLATELET VOLUME 7.5 FL (7.4-10.4); MONOCYTES # (AUTO) 0.8 X10'3 (0-0.9); NEUTROPHILS % (AUTO) 53.8 % (42-75); PLATELET COUNT 253 X10'3 (140-440); RED BLOOD COUNT 3.93 X10'6 (4.20-5.60); RED CELL DISTRIBUTION WIDTH 19.2 % (11.5-14.5); WHITE BLOOD COUNT 5.7 X10'3 (4.5-11.0)
[2021-09-19 11:12] LABS: ALANINE AMINOTRANSFERASE 70 U/L (12-78); ALBUMIN 1.9 G/DL (3.4-5.0); ALBUMIN/GLOBULIN RATIO 0.5 (1.1-1.5); ALKALINE PHOSPHATASE 101 IU/L (46-116); ANION GAP 9 (8-16); ASPARTATE AMINO TRANSFERASE 102 U/L (10-37); BILIRUBIN,TOTAL 0.3 MG/DL (0.1-1.0); BLOOD UREA NITROGEN 9 MG/DL (7-18); BUN/CREATININE RATIO 14.5 (6.6-38.0); CALCIUM 7.7 MG/DL (8.5-10.1); CHLORIDE 100 MMOL/L (99-107); CREATININE 0.62 MG/DL (0.40-0.90); GLUCOSE 70 MG/DL (70-104); POTASSIUM 3.4 MMOL/L (3.5-5.1); SODIUM 135 MMOL/L (135-145); eGFR > 90 ML/MIN
[2021-09-19] MEDS ORDERED: LEVO500T90 PO (13:14)
== END 2021-09-19 13:36 | disposition home or self-care (01) ==
LOC: ER 09:59
DX: J18.9 Pneumonia, unspecified organism (principal); R05.9 Cough, unspecified; R07.89 Other chest pain; R07.81 Pleurodynia; R50.9 Fever, unspecified; E78.00 Pure hypercholesterolemia, unspecified; I10 Essential (primary) hypertension; K21.9 Gastro-esophageal reflux disease without esophagitis; Z86.73 Personal history of transient ischemic attack (TIA), and cerebral infarction without residual deficits; Z88.0 Allergy status to penicillin; Z88.5 Allergy status to narcotic agent; Z91.030 Bee allergy status; Z79.82 Long term (current) use of aspirin; Z79.2 Long term (current) use of antibiotics; Z79.899 Other long term (current) drug therapy
CPT/HCPCS: 36415; 71045; 80053; 83880; 84484; 85025; 93005; 99285

== ENCOUNTER 2021-09-21 13:28 | Inpatient (IN) | payer MEDICARE, MEDICAID ==
[~2021-09-21] VITALS: Ht 162.6 cm; Wt 65.0 kg
[~2021-09-21 13:28] MED LIST changes: +LEVO500T90 PO
[2021-09-21 14:15] LABS: BASOPHILS % (AUTO) 0.8 % (0-1); EOSINOPHILS % (AUTO) 0.2 % (0-6); HEMATOCRIT 27.6 % (35.0-45.0); LYMPHOCYTES # (AUTO) 1.1 X10'3 (1.1-4.8); LYMPHOCYTES % (AUTO) 21.2 % (21-51); MEAN CORPUSCULAR HEMOGLOBIN 24.5 PG (27.0-31.0); MEAN CORPUSCULAR HGB CONC 32.8 g/dL (33.0-36.5); MEAN CORPUSCULAR VOLUME 74.7 FL (78-98); MEAN PLATELET VOLUME 7.5 FL (7.4-10.4); MONOCYTES # (AUTO) 0.8 X10'3 (0-0.9); NEUTROPHILS # (AUTO) 3.2 X10'3 (1.8-7.7); NEUTROPHILS % (AUTO) 62.8 % (42-75); PLATELET COUNT 276 X10'3 (140-440); RED CELL DISTRIBUTION WIDTH 19.7 % (11.5-14.5)
--- NOTE | 2021-09-21 14:16 | NUR ---
DR. PARIKH AT BEDSIDE.
[2021-09-21] MEDS ORDERED: normal saline 1000ML IV soln IVB ONE (14:25)
[2021-09-21 14:35] LABS: CLARITY,URINE CLEAR (Clear); COLOR,URINE YELLOW (Yellow); UA COLLECTION TYPE STRAIGHT CATH
[2021-09-21 14:36] LABS: GLUCOSE, URINE NEGATIVE (Neg); KETONES,URINE 15 mg/dl (Neg); LEUKOCYTE ESTERASE ,URINE NEGATIVE (Neg); NITRITES, URINE NEGATIVE (Neg); OCCULT BLOOD,URINE TRACE-INTACT (Neg); PH,URINE 6.5 (4.8-8.0); PROTEIN,URINE NEGATIVE (Neg); UROBILINOGEN,URINE 0.2 E.U/dL (0.2-1.0)
[2021-09-21 14:40] LABS: BACTERIA,URINE FEW /HPF (Neg); MUCUS STRANDS FEW /LPF (Neg); RBC,URINE 0-2 /HPF (0-2); SQUAMOUS EPITHELIAL CELL,UR FEW /LPF (FEW); WBC,URINE 0-4 /HPF (0-4)
[2021-09-21 14:46] LABS: ALANINE AMINOTRANSFERASE 52 U/L (12-78); ALBUMIN/GLOBULIN RATIO 0.5 (1.1-1.5); ALKALINE PHOSPHATASE 89 IU/L (46-116); ANION GAP 7 (8-16); ANISOCYTOSIS 2+; ASPARTATE AMINO TRANSFERASE 72 U/L (10-37); BILIRUBIN,TOTAL 0.5 MG/DL (0.1-1.0); BLOOD UREA NITROGEN 12 MG/DL (7-18); BUN/CREATININE RATIO 23.1 (6.6-38.0); CHLORIDE 99 MMOL/L (99-107); CREATININE 0.52 MG/DL (0.40-0.90); GLUCOSE 69 MG/DL (70-104); HYPOCHROMASIA 2+; LIPASE 87 U/L (73-393); MICROCYTOSIS 1+; PLATELET ESTIMATE NORMAL; POLYCHROMASIA 1+; SODIUM 131 MMOL/L (135-145); STOMATOCYTES 1+; TOTAL CARBON DIOXIDE 24.7 MMOL/L (24-32); TOTAL PROTEIN 5.8 G/DL (6.4-8.2); eGFR > 90 ML/MIN
[2021-09-21 14:49] LABS: POTASSIUM 3.6 MMOL/L (3.5-5.1)
[2021-09-21] MEDS ORDERED: normal saline 1000ML IV soln IV ONE (15:50)
[2021-09-21] MEDS ORDERED: ondansetron/PF 4mg/2ml inj IV ONE (15:50)
[2021-09-21] MEDS ORDERED: magnesium 2GM in 50ml NS 50 ML IV PRN (17:15)
[2021-09-21] MEDS ORDERED: potassium Cl 20 mEq SR tablet PO PRN (17:15)
[2021-09-21] MEDS ORDERED: magnesium 4gm in 100ml NS 100 ML IV PRN (17:15)
[2021-09-21] MEDS ORDERED: metoclopramide 5 mg/ml inj IV PRN (17:15)
[2021-09-21] MEDS ORDERED: potassium Cl 40MEQ/1/2NS 520ml 520 ML IV PRN ×2 (17:15)
[2021-09-21] MEDS ORDERED: magnesium Cl slow-release 64mg tablet PO PRN (17:15)
[2021-09-21] MEDS ORDERED: acetaminophen 325mg tablet PO PRN (17:15)
[2021-09-21] MEDS ORDERED: PERFLUTREN PROTEIN-A MICROSPHR (Optison) 0.22 MG/ML 3ML VIAL IV ONE (17:15)
[2021-09-21] MEDS ORDERED: mag hydrox/Alum hydrox/simeth 30ml oral suspension PO PRN (17:15)
[2021-09-21] MEDS ORDERED: polyethylene glycol 3350 17gm powd pack PO PRN (17:20)
[2021-09-21] MEDS ORDERED: nitroGLYCERIN 0.4mg SUBLingual tab SL PRN (17:20)
--- NOTE | 2021-09-21 17:20 | NUR ---
patient pulled out iv.
[2021-09-21] MEDS: metroNIDAZOLE 500mg tablet PO SCH ×2 (17:24→17:50)
[2021-09-21] MEDS: levoFLOXACIN-Levaquin 500mg/D5 100 ML IV SCH (17:50)
[2021-09-21] MEDS: normal saline 1000ml 1,000 ML IV SCH (17:51)
[2021-09-21] MEDS: Melatonin 3mg tablet PO SCH (19:49)
[2021-09-21] MEDS: carVEDilol 12.5mg tablet PO SCH (19:49)
[2021-09-21] MEDS: metoclopramide 10mg tablet PO SCH (19:49)
[2021-09-21] MEDS: divalproex 250mg tablet, delayed-release PO SCH (19:50)
[2021-09-21] MEDS: docusate sod 100mg capsule PO SCH (19:50)
[2021-09-21] MEDS: calcium carbonate 500mg tablet PO SCH (19:50)
[2021-09-21] MEDS: ROPINIRole 1mg tablet PO SCH (19:51)
[2021-09-21] MEDS: famotidine 20mg tablet PO SCH (19:52)
[2021-09-21] MEDS: traZODone 150mg tablet PO SCH (19:53)
[2021-09-21] MEDS: prednisoLONE acetate 1% ophth susp 5ml RIGHTEYE SCH (19:53)
[2021-09-21] MEDS: K and/or MAG REPLACEMENT MC SCH (19:54)
[2021-09-21] MEDS ORDERED: non-formulary drug (Fluticasone/Salmeterol (Advair 250-50 Diskus) 1 PUFFS) INH SCH (20:00)
[2021-09-21] MEDS: budesonide 0.5mg/2ml UD nebule IH SCH (20:02)
[2021-09-21] MEDS: albuterol 2.5 MG/3 ML nebule NEB SCH (20:02)
[2021-09-21 21:00] VITALS: BP 111/58
[2021-09-21 22:00] VITALS: BP 108/56
[2021-09-21] MEDS: primidone 50mg tablet PO SCH (23:47)
[2021-09-22] MEDS ORDERED: metroNIDAZOLE-Flagyl 500mg/NS 100 ML IV SCH
[2021-09-22 02:00] VITALS: BP 110/56
[2021-09-22] MEDS: albuterol 2.5 MG/3 ML nebule NEB SCH ×4 (02:07→19:41)
[2021-09-22] MEDS: acetaminophen 325mg tablet PO PRN ×3 (04:05→22:53)
[2021-09-22 06:25] LABS: BASOPHILS % (AUTO) 0.9 % (0-1); EOSINOPHILS # (AUTO) 0.1 X10'3 (0-0.9); HEMATOCRIT 28.3 % (35.0-45.0); HEMOGLOBIN 9.1 g/dl (12.0-16.0); LYMPHOCYTES # (AUTO) 1.4 X10'3 (1.1-4.8); LYMPHOCYTES % (AUTO) 27.5 % (21-51); MEAN CORPUSCULAR HEMOGLOBIN 24.6 PG (27.0-31.0); MEAN CORPUSCULAR HGB CONC 32.2 g/dL (33.0-36.5); MEAN CORPUSCULAR VOLUME 76.2 FL (78-98); MEAN PLATELET VOLUME 7.8 FL (7.4-10.4); MONOCYTES % (AUTO) 19.9 % (2-12); NEUTROPHILS # (AUTO) 2.6 X10'3 (1.8-7.7); NEUTROPHILS % (AUTO) 50.7 % (42-75); PLATELET COUNT 251 X10'3 (140-440); RED BLOOD COUNT 3.71 X10'6 (4.20-5.60); WHITE BLOOD COUNT 5.1 X10'3 (4.5-11.0)
--- NOTE | 2021-09-22 06:25 | NUR ---
Patient in room PCU 3028. I have received report from JULIANE RN and had the opportunity to ask questions and assume patient care.
[2021-09-22 06:37] LABS: ALBUMIN 1.8 G/DL (3.4-5.0); ANION GAP 9 (8-16); BLOOD UREA NITROGEN 12 MG/DL (7-18); BUN/CREATININE RATIO 19.7 (6.6-38.0); CALCIUM 8.2 MG/DL (8.5-10.1); CHLORIDE 101 MMOL/L (99-107); CREATININE 0.61 MG/DL (0.40-0.90); GLUCOSE 64 MG/DL (70-104); MAGNESIUM 1.7 MG/DL (1.5-2.4); POTASSIUM 3.4 MMOL/L (3.5-5.1); SODIUM 136 MMOL/L (135-145); TOTAL CARBON DIOXIDE 25.7 MMOL/L (24-32); eGFR > 90 ML/MIN
[2021-09-22 07:00] VITALS: BP 155/67
[2021-09-22 07:23] LABS: ANISOCYTOSIS 2+; MICROCYTOSIS 1+; PLATELET ESTIMATE NORMAL; POLYCHROMASIA FEW; TARGET CELLS FEW
[2021-09-22] MEDS ORDERED: non-formulary drug (Omeprazole 1 CAP) PO SCH (08:00)
[2021-09-22] MEDS: K and/or MAG REPLACEMENT MC SCH ×2 (08:00→20:00)
[2021-09-22] MEDS: budesonide 0.5mg/2ml UD nebule IH SCH ×2 (08:18→19:42)
[2021-09-22] MEDS: levoFLOXACIN-Levaquin 500mg/D5 100 ML IV SCH (08:30)
[2021-09-22] MEDS: prednisoLONE acetate 1% ophth susp 5ml RIGHTEYE SCH ×2 (08:33→20:31)
[2021-09-22] MEDS: famotidine 20mg tablet PO SCH ×2 (08:34→20:21)
[2021-09-22] MEDS: PARoxetine 10mg tablet PO SCH (08:34)
[2021-09-22] MEDS: cholecalciferol (vitamin D3) 400 unit (10mcg) tablet PO SCH (08:34)
[2021-09-22] MEDS: metroNIDAZOLE 500mg tablet PO SCH ×2 (08:34→15:40)
[2021-09-22] MEDS: carVEDilol 12.5mg tablet PO SCH ×2 (08:34→20:00)
[2021-09-22] MEDS: divalproex 250mg tablet, delayed-release PO SCH ×2 (08:34→20:21)
[2021-09-22] MEDS: levoTHYROXINE 25mcg tablet PO SCH (08:35)
[2021-09-22] MEDS: atorvastatin 20mg tablet PO SCH (08:35)
[2021-09-22] MEDS: calcium carbonate 500mg tablet PO SCH ×2 (08:36→20:21)
[2021-09-22] MEDS: loratadine 10mg tablet PO SCH (08:36)
[2021-09-22] MEDS: amLODIPine 5mg tablet PO SCH (08:36)
[2021-09-22] MEDS: docusate sod 100mg capsule PO SCH ×2 (08:36→20:21)
[2021-09-22] MEDS: potassium Cl 20 mEq SR tablet PO PRN ×3 (08:38→22:35)
[2021-09-22] MEDS: lisinopril 20mg tablet PO SCH (08:41)
[2021-09-22 11:00] VITALS: BP 140/93
--- NOTE | 2021-09-22 13:22 | NUR ---
Spoke with Bruna in [place] in regards to inquire about a thora. It was noted that No thoras will be done today, ER only. Will be completed on Friday. We will continue to monitor.
[2021-09-22 15:00] VITALS: BP 115/47
[2021-09-22] MEDS: primidone 50mg tablet PO SCH ×2 (15:39→17:55)
[2021-09-22] MEDS: ondansetron/PF 4mg/2ml inj IV PRN (15:40)
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
[2021-09-22 18:00] VITALS: BP 128/50
--- NOTE | 2021-09-22 18:04 | NUR ---
Problems reprioritized. Patient report given, questions answered & plan of care reviewed with JULIANE RN.
[2021-09-22] MEDS: metoclopramide 10mg tablet PO SCH (20:20)
[2021-09-22] MEDS: lactobacillus rhamnosus 10,000 MMU CELLS/CAPSULE PO SCH (20:21)
[2021-09-22] MEDS: Melatonin 3mg tablet PO SCH (20:21)
[2021-09-22] MEDS: ROPINIRole 1mg tablet PO SCH (20:30)
[2021-09-22] MEDS: traZODone 150mg tablet PO SCH (20:30)
[2021-09-22 22:00] VITALS: BP 118/54
[2021-09-23] MEDS: metroNIDAZOLE 500mg tablet PO SCH ×4 (00:16→23:04)
[2021-09-23] MEDS: primidone 50mg tablet PO SCH ×4 (00:17→23:05)
[2021-09-23 02:00] VITALS: BP 124/71
[2021-09-23] MEDS: albuterol 2.5 MG/3 ML nebule NEB SCH ×4 (03:37→19:47)
[2021-09-23] MEDS: ondansetron/PF 4mg/2ml inj IV PRN ×2 (04:37→12:05)
[2021-09-23 05:55] LABS: ALBUMIN 1.9 G/DL (3.4-5.0); ANION GAP 3 (8-16); BLOOD UREA NITROGEN 10 MG/DL (7-18); BUN/CREATININE RATIO 15.6 (6.6-38.0); CALCIUM 8.1 MG/DL (8.5-10.1); CHLORIDE 98 MMOL/L (99-107); CREATININE 0.64 MG/DL (0.40-0.90); GLUCOSE 74 MG/DL (70-104); MAGNESIUM 1.8 MG/DL (1.5-2.4); POTASSIUM 3.3 MMOL/L (3.5-5.1); SODIUM 126 MMOL/L (135-145); TOTAL CARBON DIOXIDE 25.3 MMOL/L (24-32); eGFR 90 ML/MIN
[2021-09-23 06:00] VITALS: BP 127/50
[2021-09-23 06:03] LABS: BASOPHILS # (AUTO) 0.1 X10'3 (0-0.2); BASOPHILS % (AUTO) 1.1 % (0-1); EOSINOPHILS # (AUTO) 0.1 X10'3 (0-0.9); EOSINOPHILS % (AUTO) 2.7 % (0-6); HEMATOCRIT 29.1 % (35.0-45.0); HEMOGLOBIN 9.3 g/dl (12.0-16.0); LYMPHOCYTES # (AUTO) 1.7 X10'3 (1.1-4.8); MEAN CORPUSCULAR HEMOGLOBIN 24.5 PG (27.0-31.0); MEAN CORPUSCULAR HGB CONC 31.8 g/dL (33.0-36.5); MEAN CORPUSCULAR VOLUME 76.9 FL (78-98); MEAN PLATELET VOLUME 7.7 FL (7.4-10.4); MONOCYTES # (AUTO) 0.9 X10'3 (0-0.9); MONOCYTES % (AUTO) 16.4 % (2-12); NEUTROPHILS # (AUTO) 2.4 X10'3 (1.8-7.7); NEUTROPHILS % (AUTO) 46.8 % (42-75); PLATELET COUNT 275 X10'3 (140-440); RED BLOOD COUNT 3.79 X10'6 (4.20-5.60); RED CELL DISTRIBUTION WIDTH 20.3 % (11.5-14.5); WHITE BLOOD COUNT 5.2 X10'3 (4.5-11.0)
--- NOTE | 2021-09-23 06:30 | NUR ---
Patient in room PCU 3028. I have received report from JULIANE RN and had the opportunity to ask questions and assume patient care.
[2021-09-23] MEDS: atorvastatin 20mg tablet PO SCH (07:50)
[2021-09-23] MEDS: calcium carbonate 500mg tablet PO SCH ×2 (07:51→19:26)
[2021-09-23] MEDS: levoTHYROXINE 25mcg tablet PO SCH (07:52)
[2021-09-23] MEDS: loratadine 10mg tablet PO SCH (07:52)
[2021-09-23] MEDS: amLODIPine 5mg tablet PO SCH (07:53)
[2021-09-23] MEDS: lactobacillus rhamnosus 10,000 MMU CELLS/CAPSULE PO SCH ×2 (07:53→19:26)
[2021-09-23] MEDS: potassium Cl 20 mEq SR tablet PO PRN (07:55)
[2021-09-23] MEDS: divalproex 250mg tablet, delayed-release PO SCH ×2 (07:55→19:26)
[2021-09-23] MEDS: PARoxetine 10mg tablet PO SCH (07:55)
[2021-09-23] MEDS: docusate sod 100mg capsule PO SCH ×2 (07:55→19:26)
[2021-09-23] MEDS: prednisoLONE acetate 1% ophth susp 5ml RIGHTEYE SCH ×2 (07:56→19:26)
[2021-09-23 08:00] LABS: ANISOCYTOSIS 3+; HYPOCHROMASIA 1+; MICROCYTOSIS 1+; PLATELET ESTIMATE NORMAL
[2021-09-23] MEDS: K and/or MAG REPLACEMENT MC SCH ×2 (08:00→20:42)
[2021-09-23] MEDS: cholecalciferol (vitamin D3) 400 unit (10mcg) tablet PO SCH (08:00)
[2021-09-23 08:01] LABS: POLYCHROMASIA FEW; TARGET CELLS FEW
[2021-09-23] MEDS: levoFLOXACIN-Levaquin 500mg/D5 100 ML IV SCH (08:19)
[2021-09-23] MEDS: budesonide 0.5mg/2ml UD nebule IH SCH ×2 (10:21→19:47)
--- NOTE | 2021-09-23 10:25 | NUR ---
Ric Consult: Score fo 11, pt noted to have rash on buttocks though no open wounds documented. Will continue to monitor. Addendum: 09/23/21 at [address] Amended: Links added.
[2021-09-23] MEDS ORDERED: POTASSIUM BICARB 20meq eff tab 20 MEQ TABLET.EFF PO PRN (10:28)
[2021-09-23 11:00] VITALS: BP 117/39
[2021-09-23] MEDS: carVEDilol 12.5mg tablet PO SCH ×2 (12:11→19:27)
[2021-09-23] MEDS: lisinopril 20mg tablet PO SCH (12:12)
[2021-09-23] MEDS: famotidine 20mg tablet PO SCH ×2 (12:12→19:26)
[2021-09-23] MEDS: POTASSIUM BICARB 20meq eff tab 20 MEQ TABLET.EFF PO PRN ×2 (13:08→17:13)
[2021-09-23 15:00] VITALS: BP 127/47
[2021-09-23] MEDS: normal saline 1000ml 1,000 ML IV SCH (16:41)
[2021-09-23 18:00] VITALS: BP 118/62
--- NOTE | 2021-09-23 18:12 | NUR ---
Problems reprioritized. Patient report given, questions answered & plan of care reviewed with Ni RN, patient stable at transfer of care.
--- NOTE | 2021-09-23 18:29 | NUR ---
Problems reprioritized. Patient report given, questions answered & plan of care reviewed with Liz LOPEZ, patient stable at transfer.
--- NOTE | 2021-09-23 18:35 | NUR ---
[place] documentation: I have reviewed and agree with all interventions, assessments performed and documented by Sandra LOPEZ.
--- NOTE | 2021-09-23 18:36 | NUR ---
[place] Medication Administration: For this medication-pass time frame, all medication were reviewed, dispensed, administered and documented per hospital policy by Sandra LOPEZ.
[2021-09-23] MEDS: metoclopramide 10mg tablet PO SCH (20:41)
[2021-09-23] MEDS: traZODone 150mg tablet PO SCH (20:41)
[2021-09-23] MEDS: ROPINIRole 1mg tablet PO SCH (20:41)
[2021-09-23] MEDS: Melatonin 3mg tablet PO SCH (20:42)
[2021-09-23 22:00] VITALS: BP 121/58
[2021-09-23] MEDS: acetaminophen 325mg tablet PO PRN (22:53)
[2021-09-24 02:00] VITALS: BP 118/60
[2021-09-24] MEDS: albuterol 2.5 MG/3 ML nebule NEB SCH ×4 (03:22→20:03)
[2021-09-24] MEDS: ondansetron/PF 4mg/2ml inj IV PRN (05:16)
[2021-09-24 06:00] VITALS: BP 152/52
--- NOTE | 2021-09-24 06:35 | NUR ---
Patient in room PCU 3028. I have received report from Alcira RN and had the opportunity to ask questions and assume patient care.
[2021-09-24] MEDS: normal saline 1000ml 1,000 ML IV SCH ×2 (06:59→20:27)
[2021-09-24 07:16] LABS: HEMATOCRIT 30.5 % (35.0-45.0); HEMOGLOBIN 9.8 g/dl (12.0-16.0); MEAN CORPUSCULAR HEMOGLOBIN 24.8 PG (27.0-31.0); MEAN CORPUSCULAR VOLUME 77.5 FL (78-98); RED BLOOD COUNT 3.93 X10'6 (4.20-5.60); RED CELL DISTRIBUTION WIDTH 20.6 % (11.5-14.5); WHITE BLOOD COUNT 5.7 X10'3 (4.5-11.0)
[2021-09-24 07:17] LABS: PLATELET COUNT 289 X10'3 (140-440)
[2021-09-24] MEDS: K and/or MAG REPLACEMENT MC SCH ×2 (08:00→19:57)
[2021-09-24] MEDS: docusate sod 100mg capsule PO SCH ×2 (08:00→20:27)
[2021-09-24 08:17] LABS: TOTAL CELLS COUNTED 100
[2021-09-24 08:18] LABS: ANISOCYTOSIS 3+; HYPOCHROMASIA 1+; MICROCYTOSIS 1+; PLATELET ESTIMATE NORMAL; POLYCHROMASIA FEW; TARGET CELLS FEW
[2021-09-24] MEDS: budesonide 0.5mg/2ml UD nebule IH SCH ×2 (09:00→20:03)
[2021-09-24] MEDS: levoFLOXACIN-Levaquin 500mg/D5 100 ML IV SCH (09:56)
[2021-09-24] MEDS: famotidine 20mg tablet PO SCH ×2 (10:07→20:25)
[2021-09-24] MEDS: cholecalciferol (vitamin D3) 400 unit (10mcg) tablet PO SCH (10:08)
[2021-09-24] MEDS: primidone 50mg tablet PO SCH ×3 (10:08→23:48)
[2021-09-24] MEDS: prednisoLONE acetate 1% ophth susp 5ml RIGHTEYE SCH ×2 (10:09→20:26)
[2021-09-24] MEDS: PARoxetine 10mg tablet PO SCH (10:09)
[2021-09-24] MEDS: amLODIPine 5mg tablet PO SCH (10:11)
[2021-09-24] MEDS: lactobacillus rhamnosus 10,000 MMU CELLS/CAPSULE PO SCH ×2 (10:11→20:23)
[2021-09-24] MEDS: metroNIDAZOLE 500mg tablet PO SCH ×3 (10:11→23:48)
[2021-09-24] MEDS: atorvastatin 20mg tablet PO SCH (10:11)
[2021-09-24] MEDS: carVEDilol 12.5mg tablet PO SCH ×2 (10:11→20:23)
[2021-09-24] MEDS: loratadine 10mg tablet PO SCH (10:11)
[2021-09-24] MEDS: lisinopril 20mg tablet PO SCH (10:12)
[2021-09-24] MEDS: divalproex 250mg tablet, delayed-release PO SCH ×2 (10:12→20:25)
[2021-09-24] MEDS: calcium carbonate 500mg tablet PO SCH ×2 (10:12→20:25)
[2021-09-24 10:13] LABS: ALBUMIN 1.9 G/DL (3.4-5.0); ANION GAP 7 (8-16); BLOOD UREA NITROGEN 6 MG/DL (7-18); BUN/CREATININE RATIO 9.4 (6.6-38.0); CHLORIDE 97 MMOL/L (99-107); CREATININE 0.64 MG/DL (0.40-0.90); GLUCOSE 100 MG/DL (70-104); MAGNESIUM 1.6 MG/DL (1.5-2.4); POTASSIUM 3.5 MMOL/L (3.5-5.1); SODIUM 132 MMOL/L (135-145); TOTAL CARBON DIOXIDE 28.2 MMOL/L (24-32); eGFR 90 ML/MIN
[2021-09-24] MEDS: levoTHYROXINE 25mcg tablet PO SCH (10:29)
[2021-09-24 11:00] VITALS: BP 120/100
[2021-09-24] MEDS: acetaminophen 325mg tablet PO PRN (14:57)
[2021-09-24 15:00] VITALS: BP 122/58
[2021-09-24 18:00] VITALS: BP 141/56
--- NOTE | 2021-09-24 18:19 | NUR ---
[place] documentation: I have reviewed and agree with all interventions, assessments performed and documented by Sandra LOPEZ.
--- NOTE | 2021-09-24 18:20 | NUR ---
[place] Medication Administration: For this medication-pass time frame, all medication were reviewed, dispensed, administered and documented per hospital policy by Sandra LOPEZ.
--- NOTE | 2021-09-24 18:24 | NUR ---
Problems reprioritized. Patient report given, questions answered & plan of care reviewed with Ni RN, patient stable at transfer of care.
[2021-09-24] MEDS: nystatin 15 GM powder TP SCH (20:19)
[2021-09-24] MEDS: metoclopramide 10mg tablet PO SCH (20:24)
[2021-09-24] MEDS: ROPINIRole 1mg tablet PO SCH (20:24)
[2021-09-24] MEDS: traZODone 150mg tablet PO SCH (20:27)
[2021-09-24] MEDS: Melatonin 3mg tablet PO SCH (20:27)
[2021-09-24 22:00] VITALS: BP 130/60
[2021-09-25 02:00] VITALS: BP 141/62
[2021-09-25] MEDS: albuterol 2.5 MG/3 ML nebule NEB SCH ×2 (02:43→09:27)
[2021-09-25 06:00] VITALS: BP 133/80
[2021-09-25 06:28] LABS: EOSINOPHILS # (AUTO) 0.2 X10'3 (0-0.9); EOSINOPHILS % (AUTO) 5.1 % (0-6); HEMATOCRIT 26.8 % (35.0-45.0); HEMOGLOBIN 8.7 g/dl (12.0-16.0); LYMPHOCYTES # (AUTO) 1.2 X10'3 (1.1-4.8); LYMPHOCYTES % (AUTO) 29.6 % (21-51); MEAN CORPUSCULAR HEMOGLOBIN 24.6 PG (27.0-31.0); MEAN CORPUSCULAR HGB CONC 32.4 g/dL (33.0-36.5); MEAN CORPUSCULAR VOLUME 75.8 FL (78-98); MEAN PLATELET VOLUME 7.1 FL (7.4-10.4); MONOCYTES # (AUTO) 0.7 X10'3 (0-0.9); MONOCYTES % (AUTO) 17.1 % (2-12); NEUTROPHILS # (AUTO) 1.9 X10'3 (1.8-7.7); NEUTROPHILS % (AUTO) 47.2 % (42-75); PLATELET COUNT 277 X10'3 (140-440); RED BLOOD COUNT 3.54 X10'6 (4.20-5.60); RED CELL DISTRIBUTION WIDTH 20.3 % (11.5-14.5); WHITE BLOOD COUNT 4.1 X10'3 (4.5-11.0)
--- NOTE | 2021-09-25 06:30 | NUR ---
Patient in room PCU 3028. I have received report from Alcira RN and had the opportunity to ask questions and assume patient care.
[2021-09-25 07:10] LABS: ALBUMIN 1.7 G/DL (3.4-5.0); ANION GAP 5 (8-16); BLOOD UREA NITROGEN 4 MG/DL (7-18); CALCIUM 7.9 MG/DL (8.5-10.1); CHLORIDE 101 MMOL/L (99-107); CREATININE 0.67 MG/DL (0.40-0.90); GLUCOSE 75 MG/DL (70-104); MAGNESIUM 1.6 MG/DL (1.5-2.4); POTASSIUM 3.9 MMOL/L (3.5-5.1); SODIUM 135 MMOL/L (135-145); TOTAL CARBON DIOXIDE 29.5 MMOL/L (24-32); eGFR 85 ML/MIN
[2021-09-25 07:31] LABS: ANISOCYTOSIS 3+; PLATELET ESTIMATE NORMAL; TOTAL CELLS COUNTED 100
[2021-09-25 07:32] LABS: HYPOCHROMASIA 2+; MICROCYTOSIS 1+; SCHISTOCYTES FEW
[2021-09-25] MEDS: K and/or MAG REPLACEMENT MC SCH (08:00)
[2021-09-25] MEDS: famotidine 20mg tablet PO SCH (08:00)
[2021-09-25] MEDS: prednisoLONE acetate 1% ophth susp 5ml RIGHTEYE SCH (08:00)
[2021-09-25] MEDS: docusate sod 100mg capsule PO SCH (08:00)
[2021-09-25] MEDS: acetaminophen 325mg tablet PO PRN (08:23)
[2021-09-25] MEDS: primidone 50mg tablet PO SCH (08:24)
[2021-09-25] MEDS: levoFLOXACIN-Levaquin 500mg/D5 100 ML IV SCH (08:24)
[2021-09-25] MEDS: loratadine 10mg tablet PO SCH (08:24)
[2021-09-25] MEDS: lisinopril 20mg tablet PO SCH (08:24)
[2021-09-25] MEDS: divalproex 250mg tablet, delayed-release PO SCH (08:25)
[2021-09-25] MEDS: amLODIPine 5mg tablet PO SCH (08:25)
[2021-09-25] MEDS: lactobacillus rhamnosus 10,000 MMU CELLS/CAPSULE PO SCH (08:25)
[2021-09-25] MEDS: cholecalciferol (vitamin D3) 400 unit (10mcg) tablet PO SCH (08:25)
[2021-09-25] MEDS: calcium carbonate 500mg tablet PO SCH (08:26)
[2021-09-25] MEDS: atorvastatin 20mg tablet PO SCH (08:26)
[2021-09-25] MEDS: PARoxetine 10mg tablet PO SCH (08:26)
[2021-09-25] MEDS: metroNIDAZOLE 500mg tablet PO SCH (08:26)
[2021-09-25] MEDS: carVEDilol 12.5mg tablet PO SCH (08:26)
[2021-09-25] MEDS: nystatin 15 GM powder TP SCH ×2 (08:49→13:31)
[2021-09-25] MEDS: levoTHYROXINE 25mcg tablet PO SCH (09:24)
[2021-09-25 09:26] LABS: BASOPHILS % (AUTO) 0.9 % (0-1); EOSINOPHILS # (AUTO) 0.2 X10'3 (0-0.9); EOSINOPHILS % (AUTO) 3.2 % (0-6); HEMATOCRIT 29.3 % (35.0-45.0); HEMOGLOBIN 9.4 g/dl (12.0-16.0); LYMPHOCYTES # (AUTO) 1.1 X10'3 (1.1-4.8); LYMPHOCYTES % (AUTO) 23.3 % (21-51); MEAN CORPUSCULAR HEMOGLOBIN 24.4 PG (27.0-31.0); MEAN CORPUSCULAR HGB CONC 32.1 g/dL (33.0-36.5); MEAN CORPUSCULAR VOLUME 75.9 FL (78-98); MEAN PLATELET VOLUME 7.4 FL (7.4-10.4); MONOCYTES # (AUTO) 0.7 X10'3 (0-0.9); NEUTROPHILS # (AUTO) 2.8 X10'3 (1.8-7.7); NEUTROPHILS % (AUTO) 58.6 % (42-75); PLATELET COUNT 316 X10'3 (140-440); RED BLOOD COUNT 3.86 X10'6 (4.20-5.60); WHITE BLOOD COUNT 4.9 X10'3 (4.5-11.0)
[2021-09-25] MEDS: budesonide 0.5mg/2ml UD nebule IH SCH (09:27)
[2021-09-25 10:48] LABS: ANISOCYTOSIS 2+; PLATELET ESTIMATE NORMAL
[2021-09-25 10:49] LABS: HYPOCHROMASIA 2+; MICROCYTOSIS 1+; POLYCHROMASIA FEW; SCHISTOCYTES FEW; TARGET CELLS FEW
[2021-09-25 11:00] VITALS: BP 116/49
[2021-09-25] MEDS: normal saline 1000ml 1,000 ML IV SCH (12:08)
--- NOTE | 2021-09-25 16:04 | NUR ---
Patient is stable for transfer to [facility] per Dr. Brewer orders. All discharge instructions reviewed with patient and all questions answered. PIV discontinued, cannula intact. Telemetry discontinued. Belongings collected and sent with patient. Patient wheeled to lobby via [employer] staff.
== END 2021-09-25 15:55 | DRG 371 ==
LOC: ER 13:29 → ED HOLD 17:16 → EDBEDREQ 19:01 → PCU 3S 20:26
PROVIDERS: ADMIT Internal Medicine; ATTEND Internal Medicine
DX: A04.9 Bacterial intestinal infection, unspecified (principal); J18.9 Pneumonia, unspecified organism; E87.1 Hypo-osmolality and hyponatremia; J90 Pleural effusion, not elsewhere classified; I69.354 Hemiplegia and hemiparesis following cerebral infarction affecting left non-dominant side; N39.0 Urinary tract infection, site not specified; J98.11 Atelectasis; B96.1 Klebsiella pneumoniae [K. pneumoniae] as the cause of diseases classified elsewhere; E03.9 Hypothyroidism, unspecified; Z20.822 Contact with and (suspected) exposure to COVID-19; E78.00 Pure hypercholesterolemia, unspecified; F32.A Depression, unspecified; E78.5 Hyperlipidemia, unspecified; F02.80 Dementia in other diseases classified elsewhere, unspecified severity, without behavioral disturbance, psychotic disturbance, mood disturbance, and anxiety; G20 Parkinson's disease; G25.81 Restless legs syndrome; I10 Essential (primary) hypertension; K21.9 Gastro-esophageal reflux disease without esophagitis; Z88.5 Allergy status to narcotic agent; Z88.0 Allergy status to penicillin; Z88.8 Allergy status to other drugs, medicaments and biological substances; Z91.030 Bee allergy status; Z79.899 Other long term (current) drug therapy
CPT/HCPCS: 36415; 71045; 74176; 76604; 76937; 80048; 80053; 81001; 83605; 83690; 83735; 83880; 84132; 84145; 84484; 85007; 85008; 85025; 85610; 87040; 87081; 87635; 93005; 93308; 94640; 94760; 96374; 97110; 97116; 97162; 97530; 99285; G0378; J1956; J2405; J2765; J3490; J7030; J7626; J8597

== ENCOUNTER 2022-04-29 19:00 | Inpatient (IN) | payer MEDICARE, MEDICAID ==
[~2022-04-29] VITALS: Ht 157.5 cm; Wt 52.7 kg
[~2022-04-29 19:00] MED LIST changes: -CEPH-585 PO; -LEVO500T90 PO
[2022-04-29 19:41] LABS: BASOPHILS % (AUTO) 0.6 % (0-1); EOSINOPHILS # (AUTO) 0.2 X10'3 (0-0.9); EOSINOPHILS % (AUTO) 3.9 % (0-6); HEMATOCRIT 29.1 % (35.0-45.0); HEMOGLOBIN 9.3 g/dl (12.0-16.0); LYMPHOCYTES # (AUTO) 1.1 X10'3 (1.1-4.8); LYMPHOCYTES % (AUTO) 26.6 % (21-51); MEAN CORPUSCULAR HEMOGLOBIN 23.1 PG (27.0-31.0); MEAN CORPUSCULAR VOLUME 72.2 FL (78-98); MEAN PLATELET VOLUME 6.8 FL (7.4-10.4); MONOCYTES # (AUTO) 0.9 X10'3 (0-0.9); NEUTROPHILS # (AUTO) 1.9 X10'3 (1.8-7.7); NEUTROPHILS % (AUTO) 45.9 % (42-75); PLATELET COUNT 385 X10'3 (140-440); RED BLOOD COUNT 4.03 X10'6 (4.20-5.60); RED CELL DISTRIBUTION WIDTH 32.4 % (11.5-14.5); WHITE BLOOD COUNT 4.1 X10'3 (4.5-11.0)
[2022-04-29 19:56] LABS: ALANINE AMINOTRANSFERASE 13 U/L (12-78); ALBUMIN 2.7 G/DL (3.4-5.0); ALBUMIN/GLOBULIN RATIO 0.7 (1.1-1.5); ALKALINE PHOSPHATASE 64 IU/L (46-116); ANION GAP 8 (8-16); ASPARTATE AMINO TRANSFERASE 16 U/L (10-37); BILIRUBIN,TOTAL 0.1 MG/DL (0.1-1.0); BLOOD UREA NITROGEN 31 MG/DL (7-18); CALCIUM 8.3 MG/DL (8.5-10.1); CHLORIDE 101 MMOL/L (99-107); CREATININE 1.63 MG/DL (0.40-0.90); GLUCOSE 89 MG/DL (70-104); POTASSIUM 4.1 MMOL/L (3.5-5.1); SODIUM 132 MMOL/L (135-145); TOTAL CARBON DIOXIDE 22.7 MMOL/L (24-32); TOTAL PROTEIN 6.7 G/DL (6.4-8.2); eGFR 30 ML/MIN
[2022-04-29 21:15] LABS: ANISOCYTOSIS 3+; HYPOCHROMASIA 2+; MICROCYTOSIS 1+; TOTAL CELLS COUNTED 100
[2022-04-29 21:16] LABS: PLATELET ESTIMATE NORMAL; SCHISTOCYTES FEW; TARGET CELLS FEW
[2022-04-29] MEDS ORDERED: normal saline 1000ml 1,000 ML IV ONE (22:25)
[2022-04-29] MEDS ORDERED: pantoprazole 40MG/NS 100ML BAG 100 ML IV ONE (22:40)
[2022-04-29] MEDS ORDERED: ondansetron/PF 4mg/2ml inj IV ONE (22:45)
[2022-04-30] VITALS (7 sets, daily range): BP systolic 106–135; BP diastolic 46–64
[2022-04-30] MEDS ORDERED: acetaminophen w/codeine (30MG) #3 tablet PO ONE (00:35)
[2022-04-30] MEDS ORDERED: magnesium 2GM in 50ml NS 50 ML IV PRN (00:45)
[2022-04-30] MEDS ORDERED: magnesium 4gm in 100ml NS 100 ML IV PRN (00:45)
[2022-04-30] MEDS ORDERED: magnesium hydroxide 30ml (MOM) UD suspension PO PRN (00:45)
[2022-04-30] MEDS ORDERED: mag hydrox/Alum hydrox/simeth 30ml oral suspension PO PRN (00:45)
[2022-04-30] MEDS ORDERED: ondansetron/PF 4mg/2ml inj IV PRN (00:45)
[2022-04-30] MEDS ORDERED: POTASSIUM BICARB 20meq eff tab 20 MEQ TABLET.EFF PO PRN ×2 (00:45)
[2022-04-30] MEDS ORDERED: magnesium Cl slow-release 64mg tablet PO PRN (00:45)
[2022-04-30] MEDS ORDERED: acetaminophen 325mg tablet PO PRN (00:45)
[2022-04-30] MEDS ORDERED: potassium CL 10mEq/100ml bag 100 ML IV PRN (00:45)
[2022-04-30 00:54] LABS: CLARITY,URINE SLIGHTLY CLOUDY (Clear); COLOR,URINE YELLOW (Yellow); GLUCOSE, URINE NEGATIVE (Neg); KETONES,URINE NEGATIVE (Neg); LEUKOCYTE ESTERASE ,URINE NEGATIVE (Neg); NITRITES, URINE NEGATIVE (Neg); OCCULT BLOOD,URINE NEGATIVE (Neg); PROTEIN,URINE NEGATIVE (Neg); UROBILINOGEN,URINE 0.2 E.U/dL (0.2-1.0)
[2022-04-30] MEDS ORDERED: oxyCODONE/APAP 5-325mg tablet PO ONE (00:55)
[2022-04-30 01:00] LABS: UA COLLECTION TYPE CLN CATCH MIDSTREAM
[2022-04-30] MEDS: normal saline 1000ml 1,000 ML IV SCH ×3 (01:07→20:45)
[2022-04-30 01:16] LABS: BACTERIA,URINE FEW /HPF (Neg); CAL OXALATE CRYSTALS 4+ /HPF (NEGATIVE); RBC,URINE 0-2 /HPF (0-2); SQUAMOUS EPITHELIAL CELL,UR FEW /LPF (FEW); WBC,URINE NONE SEEN /HPF (0-4)
[2022-04-30] MEDS ORDERED: SULF1TAB49 PO (02:02)
[2022-04-30] MEDS ORDERED: CARV3.1244 PO (02:03)
[2022-04-30] MEDS ORDERED: FAMO-49 PO (02:06)
[2022-04-30] MEDS ORDERED: FAMO20TA8 PO (02:06)
[2022-04-30] MEDS ORDERED: LISI20TA28 PO (02:08)
[2022-04-30] MEDS ORDERED: PANT-47 PO (02:09)
[2022-04-30] MEDS ORDERED: SENN-263 PO (02:11)
[2022-04-30] MEDS ORDERED: TRAZ-256 PO (02:21)
--- NOTE | 2022-04-30 03:05 | NUR ---
Received report from Kory LOPEZ in the ER. Pt arrived on the unit via gurney, her belongings were in a pt bag, she was on room air, with NS running @ 100 with no signs of distress. We were able to slide her to her bed without incident. Will continue to monitor.
[2022-04-30 03:07] LABS: POTASSIUM 4.2 MMOL/L (3.5-5.1)
[2022-04-30] MEDS ORDERED: oxyCODONE/APAP 5-325mg tablet PO PRN (03:50)
[2022-04-30] MEDS ORDERED: polyethylene glycol 3350 17gm powd pack PO PRN (03:50)
--- NOTE | 2022-04-30 06:51 | NUR ---
Patient in room PCU 3024. I have received report from Annalee LOPEZ and had the opportunity to ask questions and assume patient care.
--- NOTE | 2022-04-30 06:51 | NUR ---
Problems reprioritized. Patient report given, questions answered & plan of care reviewed with Sandra LOPEZ.
[2022-04-30] MEDS: levoTHYROXINE 25mcg tablet PO SCH (10:43)
[2022-04-30] MEDS: divalproex 250mg tablet, delayed-release PO SCH ×2 (10:43→19:38)
[2022-04-30] MEDS: PARoxetine 10mg tablet PO SCH (10:43)
[2022-04-30] MEDS: docusate sod 100mg capsule PO SCH ×2 (10:43→19:37)
[2022-04-30] MEDS: famotidine 20mg tablet PO SCH (10:44)
[2022-04-30] MEDS: primidone 50mg tablet PO SCH ×2 (10:44→19:37)
[2022-04-30] MEDS: carVEDilol 3.125mg tablet PO SCH ×2 (10:44→19:38)
--- NOTE | 2022-04-30 18:46 | NUR ---
Patient in room U 3024. I have received report from Sandra LOPEZ and had the opportunity to ask questions and assume patient care. Pt sitting up in bed eating dinner. No signs of distress. Will continue to monitor.
[2022-04-30] MEDS: K and/or MAG REPLACEMENT MC SCH ×2 (18:55→18:58)
[2022-04-30] MEDS ORDERED: traZODone 50mg tablet PO SCH (21:00)
[2022-04-30] MEDS ORDERED: ROPINIRole 1mg tablet PO SCH (21:00)
[2022-04-30] MEDS ORDERED: Melatonin 3mg tablet PO SCH (21:00)
[2022-05-01] MEDS: primidone 50mg tablet PO SCH ×2 (00:34→09:17)
[2022-05-01 02:00] VITALS: BP 115/42
[2022-05-01 05:57] LABS: BASOPHILS % (AUTO) 0.9 % (0-1); EOSINOPHILS # (AUTO) 0.2 X10'3 (0-0.9); EOSINOPHILS % (AUTO) 6.4 % (0-6); HEMATOCRIT 31.1 % (35.0-45.0); HEMOGLOBIN 9.7 g/dl (12.0-16.0); LYMPHOCYTES # (AUTO) 1.9 X10'3 (1.1-4.8); LYMPHOCYTES % (AUTO) 51.7 % (21-51); MEAN CORPUSCULAR HEMOGLOBIN 23.2 PG (27.0-31.0); MEAN CORPUSCULAR HGB CONC 31.2 g/dL (33.0-36.5); MEAN CORPUSCULAR VOLUME 74.2 FL (78-98); MONOCYTES # (AUTO) 0.8 X10'3 (0-0.9); NEUTROPHILS # (AUTO) 0.7 X10'3 (1.8-7.7); PLATELET COUNT 332 X10'3 (140-440); RED CELL DISTRIBUTION WIDTH 34.1 % (11.5-14.5); WHITE BLOOD COUNT 3.7 X10'3 (4.5-11.0)
[2022-05-01 06:00] VITALS: BP 127/52
--- NOTE | 2022-05-01 06:28 | NUR ---
Problems reprioritized. Patient report given, questions answered & plan of care reviewed with Patience LOPEZ.
[2022-05-01 06:32] LABS: ALANINE AMINOTRANSFERASE 13 U/L (12-78); ALBUMIN 2.5 G/DL (3.4-5.0); ALBUMIN/GLOBULIN RATIO 0.6 (1.1-1.5); ALKALINE PHOSPHATASE 57 IU/L (46-116); ANION GAP 9 (8-16); ASPARTATE AMINO TRANSFERASE 19 U/L (10-37); BILIRUBIN,TOTAL 0.1 MG/DL (0.1-1.0); BLOOD UREA NITROGEN 14 MG/DL (7-18); BUN/CREATININE RATIO 23.3 (6.6-38.0); CALCIUM 8.3 MG/DL (8.5-10.1); CHLORIDE 108 MMOL/L (99-107); GLUCOSE 61 MG/DL (70-104); MAGNESIUM 1.8 MG/DL (1.5-2.4); PHOSPHORUS 2.7 MG/DL (2.3-4.5); POTASSIUM 4.5 MMOL/L (3.5-5.1); SODIUM 138 MMOL/L (135-145); TOTAL CARBON DIOXIDE 20.9 MMOL/L (24-32); TOTAL PROTEIN 6.5 G/DL (6.4-8.2); eGFR > 90 ML/MIN
[2022-05-01 06:45] LABS: ANISOCYTOSIS 3+; MICROCYTOSIS 1+; PLATELET ESTIMATE NORMAL; TOTAL CELLS COUNTED 100
[2022-05-01] MEDS: normal saline 1000ml 1,000 ML IV SCH (06:45)
[2022-05-01 06:46] LABS: HYPOCHROMASIA 1+
--- NOTE | 2022-05-01 07:53 | NUR ---
Message: Padmini Yeboah [id number] Critical glucose level noted in labs 61. Nothing ordered. Juice given and POC glucose taken 68. Did you want to order anything? Patience [id number]
[2022-05-01] MEDS: carVEDilol 3.125mg tablet PO SCH (08:00)
[2022-05-01] MEDS: K and/or MAG REPLACEMENT MC SCH (08:00)
[2022-05-01] MEDS: levoTHYROXINE 25mcg tablet PO SCH (09:16)
[2022-05-01] MEDS: docusate sod 100mg capsule PO SCH (09:16)
[2022-05-01] MEDS: PARoxetine 10mg tablet PO SCH (09:16)
[2022-05-01] MEDS: divalproex 250mg tablet, delayed-release PO SCH (09:16)
[2022-05-01] MEDS: famotidine 20mg tablet PO SCH (09:17)
--- NOTE | 2022-05-01 09:34 | NUR ---
Message: Padmini Yeboah [id number] Pt. states several issues of hypoglycemia past visits/ this visit. Did you want to prescribe? Also pt. states she hasn't seen you yet. Do you want to assess before discharge? Patience [phone]
[2022-05-01 10:41] LABS: HEMOGLOBIN A1C 5.1 % (4.5-6.2)
[2022-05-01 11:00] VITALS: BP 112/46
--- NOTE | 2022-05-01 11:09 | NUR ---
Report given to Elizabet administrative resident. She is aware pt. needs to stay well hydrated and eat well.
--- NOTE | 2022-05-01 11:10 | NUR ---
Message: Padmini Yeboah [id number] A1C 5.1. Do you just ant me to tell accepting facility to monitor her BG and have her eat? Patience [phone]
--- NOTE | 2022-05-01 11:57 | NUR ---
Pt discharged. PIV removed, discharge paperwork reviewed with pt.
[2022-05-01] MEDS ORDERED: FERR325T28 PO (21:52)
[2022-05-01] MEDS ORDERED: VITC500T PO (21:52)
== END 2022-05-01 11:47 | disposition home or self-care (01) | DRG 640 ==
LOC: ER 19:00 → ED HOLD 04-30 00:48 → EDBEDREQTM 04-30 02:33 → EDBEDREQDT 04-30 02:33 → EDBEDREQ 04-30 02:33 → PCU 3S 04-30 03:13
PROVIDERS: ADMIT Internal Medicine; ATTEND Family Medicine
DX: E86.0 Dehydration (principal); N17.0 Acute kidney failure with tubular necrosis; E87.1 Hypo-osmolality and hyponatremia; Z20.822 Contact with and (suspected) exposure to COVID-19; D50.9 Iron deficiency anemia, unspecified; E03.9 Hypothyroidism, unspecified; E78.00 Pure hypercholesterolemia, unspecified; G89.29 Other chronic pain; R30.9 Painful micturition, unspecified; F02.80 Dementia in other diseases classified elsewhere, unspecified severity, without behavioral disturbance, psychotic disturbance, mood disturbance, and anxiety; M19.90 Unspecified osteoarthritis, unspecified site; I95.9 Hypotension, unspecified; G20 Parkinson's disease; I10 Essential (primary) hypertension; J44.9 Chronic obstructive pulmonary disease, unspecified; K21.9 Gastro-esophageal reflux disease without esophagitis; Z82.49 Family history of ischemic heart disease and other diseases of the circulatory system; Z86.73 Personal history of transient ischemic attack (TIA), and cerebral infarction without residual deficits; Z87.891 Personal history of nicotine dependence; Z88.0 Allergy status to penicillin; Z88.5 Allergy status to narcotic agent; Z88.8 Allergy status to other drugs, medicaments and biological substances; Z79.899 Other long term (current) drug therapy
CPT/HCPCS: 36415; 71045; 80053; 81001; 82948; 83036; 83735; 83880; 84100; 84132; 84145; 84443; 84484; 85007; 85025; 87081; 87635; 93005; 96365; 96375; 97161; 97530; 99285; C9113; C9803; G0378; J2405; J7030

== ENCOUNTER 2022-05-03 01:05 | Emergency (ER) | payer MEDICARE, MEDICAID ==
[~2022-05-03] VITALS: Ht 157.5 cm; Wt 52.7 kg
[~2022-05-03 01:05] MED LIST changes: -AMLO-708 PO; -ASPI-1265 PO; -ATOR40TA PO; -BENA40TA90 PO; -CARV-50 PO; +CARV3.1244 PO; -CHOL400T57 PO; +FERR325T28 PO; -FLUT1DIS20 INH; +LISI20TA28 PO; -METO-292 PO; -OMEP20CA15 PO; -OSC500T PO; +PANT-47 PO; -PRED5DRO23 RIGHTEYE; +SENN-263 PO; +TRAZ-256 PO; -TRAZ150T78 PO; +VITC500T PO
[2022-05-03] MEDS ORDERED: ondansetron 4mg rapidly disintigrating tab PO ONE (01:25)
[2022-05-03 02:07] LABS: BASOPHILS % (AUTO) 1.1 % (0-1); EOSINOPHILS % (AUTO) 1.7 % (0-6); HEMATOCRIT 33.1 % (35.0-45.0); HEMOGLOBIN 10.6 g/dl (12.0-16.0); LYMPHOCYTES # (AUTO) 0.5 X10'3 (1.1-4.8); LYMPHOCYTES % (AUTO) 19.6 % (21-51); MEAN CORPUSCULAR HEMOGLOBIN 23.8 PG (27.0-31.0); MEAN CORPUSCULAR HGB CONC 32.1 g/dL (33.0-36.5); MEAN CORPUSCULAR VOLUME 74.2 FL (78-98); MEAN PLATELET VOLUME 7.1 FL (7.4-10.4); MONOCYTES # (AUTO) 0.3 X10'3 (0-0.9); MONOCYTES % (AUTO) 11.7 % (2-12); NEUTROPHILS # (AUTO) 1.7 X10'3 (1.8-7.7); NEUTROPHILS % (AUTO) 65.9 % (42-75); PLATELET COUNT 330 X10'3 (140-440); RED BLOOD COUNT 4.47 X10'6 (4.20-5.60); RED CELL DISTRIBUTION WIDTH 34.6 % (11.5-14.5); WHITE BLOOD COUNT 2.5 X10'3 (4.5-11.0)
[2022-05-03 02:16] LABS: ALANINE AMINOTRANSFERASE 17 U/L (12-78); ALBUMIN 2.9 G/DL (3.4-5.0); ALBUMIN/GLOBULIN RATIO 0.6 (1.1-1.5); ALKALINE PHOSPHATASE 66 IU/L (46-116); ANION GAP 9 (8-16); ASPARTATE AMINO TRANSFERASE 21 U/L (10-37); BILIRUBIN,TOTAL 0.2 MG/DL (0.1-1.0); BLOOD UREA NITROGEN 12 MG/DL (7-18); BUN/CREATININE RATIO 14.6 (6.6-38.0); CHLORIDE 99 MMOL/L (99-107); CREATININE 0.82 MG/DL (0.40-0.90); GLUCOSE 77 MG/DL (70-104); POTASSIUM 4.1 MMOL/L (3.5-5.1); SODIUM 134 MMOL/L (135-145); TOTAL CARBON DIOXIDE 26.5 MMOL/L (24-32); TOTAL PROTEIN 7.5 G/DL (6.4-8.2); eGFR 67 ML/MIN
[2022-05-03 02:24] LABS: LIPASE 139 U/L (73-393)
[2022-05-03 02:46] LABS: PLATELET ESTIMATE NORMAL; TOTAL CELLS COUNTED 100
[2022-05-03 02:47] LABS: HYPOCHROMASIA 2+; MICROCYTOSIS 1+; TARGET CELLS 2+
--- NOTE | 2022-05-03 02:48 | NUR ---
CALLED [facility] FOR BLS TRANSPORT BACK TO FACILITY
[2022-05-03 02:57] VITALS: BP 107/50
== END 2022-05-03 03:01 | disposition home or self-care (01) ==
LOC: ER 01:05
DX: R07.89 Other chest pain (principal); R11.2 Nausea with vomiting, unspecified; G20 Parkinson's disease; F02.80 Dementia in other diseases classified elsewhere, unspecified severity, without behavioral disturbance, psychotic disturbance, mood disturbance, and anxiety; E78.00 Pure hypercholesterolemia, unspecified; I10 Essential (primary) hypertension; J44.9 Chronic obstructive pulmonary disease, unspecified; K21.9 Gastro-esophageal reflux disease without esophagitis; M19.90 Unspecified osteoarthritis, unspecified site; E03.9 Hypothyroidism, unspecified; G89.29 Other chronic pain; Z86.73 Personal history of transient ischemic attack (TIA), and cerebral infarction without residual deficits; Z88.0 Allergy status to penicillin; Z88.8 Allergy status to other drugs, medicaments and biological substances; Z91.048 Other nonmedicinal substance allergy status; Z79.899 Other long term (current) drug therapy
CPT/HCPCS: 36415; 71045; 80053; 83690; 83880; 84484; 85007; 85025; 93005; 99285

== ENCOUNTER 2022-10-22 19:44 | Observation (INO) | payer MEDICARE, MEDICAID ==
[~2022-10-22] VITALS: Ht 157.5 cm; Wt 43.2 kg
[~2022-10-22 19:44] MED LIST changes: -FERR325T28 PO; +PARO-153 PO; -PARO10TA85 PO; -VITC500T PO
[2022-10-22] MEDS ORDERED: verapamil 2.5 mg/ml inj IV ONE (19:49)
[2022-10-22] MEDS ORDERED: nitroGLYCERIN-Tridil 50MG/D5W 0 ML IV ONE (19:49)
[2022-10-22] MEDS ORDERED: LIDOcaine 1% 30ml preserv. free vial ONE (19:49)
[2022-10-22] MEDS ORDERED: midazolam 1 mg/ML 2ml injection ONE (19:49)
[2022-10-22] MEDS ORDERED: fentaNYL/PF 50MCG/1 ML 2ML syringe ONE (19:49)
[2022-10-22] MEDS ORDERED: iohexol 350MG/ML 100ml bottle IV ONE (19:50)
[2022-10-22] MEDS ORDERED: heparin 1,000unit/ml 10ml vial 0 ML ONE (19:50)
[2022-10-22] MEDS ORDERED: heparin 1,000 UNITS/NS 500ml 0 ML ONE (19:50)
[2022-10-22 19:59] LABS: BASOPHILS # (AUTO) 0.1 X10'3 (0-0.2); BASOPHILS % (AUTO) 1.5 % (0-1); EOSINOPHILS # (AUTO) 0.5 X10'3 (0-0.9); EOSINOPHILS % (AUTO) 7.7 % (0-6); HEMATOCRIT 41.1 % (35.0-45.0); HEMOGLOBIN 13.4 g/dl (12.0-16.0); LYMPHOCYTES # (AUTO) 2.1 X10'3 (1.1-4.8); LYMPHOCYTES % (AUTO) 33.8 % (21-51); MEAN CORPUSCULAR HEMOGLOBIN 30.9 PG (27.0-31.0); MEAN CORPUSCULAR HGB CONC 32.7 g/dL (33.0-36.5); MEAN CORPUSCULAR VOLUME 94.6 FL (78-98); MONOCYTES # (AUTO) 0.8 X10'3 (0-0.9); MONOCYTES % (AUTO) 13.6 % (2-12); NEUTROPHILS # (AUTO) 2.7 X10'3 (1.8-7.7); NEUTROPHILS % (AUTO) 43.4 % (42-75); PLATELET COUNT 219 X10'3 (140-440); RED BLOOD COUNT 4.34 X10'6 (4.20-5.60); RED CELL DISTRIBUTION WIDTH 13.9 % (11.5-14.5); WHITE BLOOD COUNT 6.2 X10'3 (4.5-11.0)
[2022-10-22 20:15] LABS: ALANINE AMINOTRANSFERASE 28 U/L (12-78); ALBUMIN 3.4 G/DL (3.4-5.0); ALBUMIN/GLOBULIN RATIO 0.9 (1.1-1.5); ALKALINE PHOSPHATASE 99 IU/L (46-116); ANION GAP 6 (8-16); ASPARTATE AMINO TRANSFERASE 28 U/L (10-37); BLOOD UREA NITROGEN 17 MG/DL (7-18); BUN/CREATININE RATIO 25.4 (6.6-38.0); CALCIUM 9.4 MG/DL (8.5-10.1); CHLORIDE 102 MMOL/L (99-107); CREATININE 0.67 MG/DL (0.40-0.90); GLUCOSE 100 MG/DL (70-104); POTASSIUM 4.5 MMOL/L (3.5-5.1); SODIUM 140 MMOL/L (135-145); TOTAL CARBON DIOXIDE 31.8 MMOL/L (24-32); TOTAL PROTEIN 7.3 G/DL (6.4-8.2); eGFR 85 ML/MIN
[2022-10-22 20:19] LABS: BILIRUBIN,TOTAL 0.1 MG/DL (0.1-1.0)
[2022-10-22] MEDS: morphine 4 MG/ML inj SYRINge IV ONE (21:03)
[2022-10-22] MEDS: acetaminophen 325mg tablet PO ONE (21:03)
[2022-10-22] MEDS: ondansetron/PF 4mg/2ml inj IV ONE (21:03)
[2022-10-22] MEDS: mag hydrox/Alum hydrox/simeth 30ml oral suspension PO ONE (21:04)
[2022-10-22] MEDS: LIDOcaine Viscous 15ml cup MM ONE (21:04)
[2022-10-22 21:10] LABS: LIPASE 238 U/L (73-393)
[2022-10-22] MEDS ORDERED: ondansetron/PF 4mg/2ml inj IV PRN (23:05)
[2022-10-22] MEDS ORDERED: acetaminophen 325mg tablet PO PRN (23:05)
[2022-10-22] MEDS ORDERED: morphine 2 MG/ML inj. syringe IV PRN (23:05)
[2022-10-22] MEDS ORDERED: magnesium 4gm in 100ml NS 100 ML IV PRN (23:05)
[2022-10-22] MEDS ORDERED: potassium Cl 20 mEq SR tablet PO PRN ×2 (23:05)
[2022-10-22] MEDS ORDERED: PERFLUTREN PROTEIN-A MICROSPHR (Optison) 0.22 MG/ML 3ML VIAL IV ONE (23:05)
[2022-10-22] MEDS ORDERED: potassium Cl 40MEQ/1/2NS 520ml 520 ML IV PRN (23:05)
[2022-10-22] MEDS ORDERED: magnesium Cl slow-release 64mg tablet PO PRN (23:05)
[2022-10-22] MEDS ORDERED: aminophylline 500mg/20ml vial IV PRN (23:15)
[2022-10-22] MEDS ORDERED: metoprolol tartrate 1mg/ml inj IV PRN (23:15)
[2022-10-22] MEDS ORDERED: nitroGLYCERIN 0.4mg SUBLingual tab SL PRN (23:15)
[2022-10-22] MEDS: normal saline 1000ml 1,000 ML IV SCH (23:23)
[2022-10-23] VITALS (9 sets, daily range): BP systolic 115–175; BP diastolic 58–79
[2022-10-23 05:58] LABS: EOSINOPHILS # (AUTO) 0.4 X10'3 (0-0.9); HEMOGLOBIN 12.6 g/dl (12.0-16.0); LYMPHOCYTES # (AUTO) 2.3 X10'3 (1.1-4.8); MONOCYTES # (AUTO) 0.7 X10'3 (0-0.9); NEUTROPHILS # (AUTO) 2.6 X10'3 (1.8-7.7); WHITE BLOOD COUNT 6.2 X10'3 (4.5-11.0)
[2022-10-23 06:01] LABS: BASOPHILS # (AUTO) 0.1 X10'3 (0-0.2); BASOPHILS % (AUTO) 1.3 % (0-1); EOSINOPHILS % (AUTO) 6.9 % (0-6); HEMATOCRIT 37.6 % (35.0-45.0); LYMPHOCYTES % (AUTO) 37.1 % (21-51); MEAN CORPUSCULAR HEMOGLOBIN 31.6 PG (27.0-31.0); MEAN CORPUSCULAR HGB CONC 33.4 g/dL (33.0-36.5); MEAN CORPUSCULAR VOLUME 94.6 FL (78-98); MEAN PLATELET VOLUME 6.9 FL (7.4-10.4); MONOCYTES % (AUTO) 12.1 % (2-12); NEUTROPHILS % (AUTO) 42.6 % (42-75); PLATELET COUNT 211 X10'3 (140-440); RED BLOOD COUNT 3.98 X10'6 (4.20-5.60); RED CELL DISTRIBUTION WIDTH 13.9 % (11.5-14.5)
[2022-10-23 06:18] LABS: ANION GAP 7 (8-16); BLOOD UREA NITROGEN 18 MG/DL (7-18); BUN/CREATININE RATIO 33.3 (6.6-38.0); CALCIUM 8.8 MG/DL (8.5-10.1); CHLORIDE 103 MMOL/L (99-107); CREATININE 0.54 MG/DL (0.40-0.90); GLUCOSE 81 MG/DL (70-104); MAGNESIUM 2.5 MG/DL (1.5-2.4); POTASSIUM 4.4 MMOL/L (3.5-5.1); SODIUM 138 MMOL/L (135-145); TOTAL CARBON DIOXIDE 27.8 MMOL/L (24-32); eGFR > 90 ML/MIN
[2022-10-23] MEDS: docusate sod 100mg capsule PO SCH (08:00)
[2022-10-23] MEDS: K and/or MAG REPLACEMENT MC SCH (08:00)
[2022-10-23] MEDS: regadenoson 0.4mg/5ml syringe IV PRN (08:52)
[2022-10-23] MEDS: acetaminophen 325mg tablet PO PRN (15:36)
== END 2022-10-23 15:54 | disposition home or self-care (01) ==
LOC: ER 19:44 → ED HOLD 23:11 → SUR 3N 10-23 07:15
PROVIDERS: ADMIT Internal Medicine; ATTEND Family Medicine
DX: R07.89 Other chest pain (principal); E03.9 Hypothyroidism, unspecified; I10 Essential (primary) hypertension; I25.10 Atherosclerotic heart disease of native coronary artery without angina pectoris; J44.9 Chronic obstructive pulmonary disease, unspecified; K21.9 Gastro-esophageal reflux disease without esophagitis; G25.81 Restless legs syndrome; F32.A Depression, unspecified; G20 Parkinson's disease; F02.80 Dementia in other diseases classified elsewhere, unspecified severity, without behavioral disturbance, psychotic disturbance, mood disturbance, and anxiety; E78.5 Hyperlipidemia, unspecified; E78.00 Pure hypercholesterolemia, unspecified; I25.2 Old myocardial infarction; Z88.0 Allergy status to penicillin; Z86.73 Personal history of transient ischemic attack (TIA), and cerebral infarction without residual deficits; Z79.899 Other long term (current) drug therapy; Z88.6 Allergy status to analgesic agent
CPT/HCPCS: 36415; 71045; 78452; 80048; 80053; 83690; 83735; 83880; 84484; 85025; 93005; 93017; 93306; 96361; 96374; 96375; 99285; A9500; G0378; J2270; J2405; J2785; J7030; 84132; A4615; J1644; J2250; J3010; J3490; Q9967

== ENCOUNTER 2023-05-11 19:15 | Emergency (ER) | payer MEDICARE, MEDICAID ==
[~2023-05-11] VITALS: Ht 144.8 cm; Wt 68.2 kg
[2023-05-11 19:45] LABS: BASOPHILS # (AUTO) 0.1 X10'3 (0-0.2); BASOPHILS % (AUTO) 1.6 % (0-1); EOSINOPHILS # (AUTO) 0.2 X10'3 (0-0.9); EOSINOPHILS % (AUTO) 3.9 % (0-6); HEMATOCRIT 31.8 % (35.0-45.0); LYMPHOCYTES # (AUTO) 2.3 X10'3 (1.1-4.8); LYMPHOCYTES % (AUTO) 38.7 % (21-51); MEAN CORPUSCULAR HEMOGLOBIN 24.2 PG (27.0-31.0); MEAN CORPUSCULAR HGB CONC 31.6 g/dL (33.0-36.5); MEAN CORPUSCULAR VOLUME 76.7 FL (78-98); MEAN PLATELET VOLUME 6.7 FL (7.4-10.4); MONOCYTES % (AUTO) 16.1 % (2-12); NEUTROPHILS # (AUTO) 2.3 X10'3 (1.8-7.7); NEUTROPHILS % (AUTO) 39.7 % (42-75); PLATELET COUNT 357 X10'3 (140-440); RED BLOOD COUNT 4.14 X10'6 (4.20-5.60); RED CELL DISTRIBUTION WIDTH 17.1 % (11.5-14.5); WHITE BLOOD COUNT 5.9 X10'3 (4.5-11.0)
[2023-05-11 19:56] LABS: ALANINE AMINOTRANSFERASE 24 U/L (12-78); ALBUMIN 3.4 G/DL (3.4-5.0); ALBUMIN/GLOBULIN RATIO 0.9 (1.1-1.5); ALKALINE PHOSPHATASE 109 IU/L (46-116); ANION GAP 11 (8-16); ASPARTATE AMINO TRANSFERASE 17 U/L (10-37); BILIRUBIN,TOTAL 0.1 MG/DL (0.1-1.0); BLOOD UREA NITROGEN 26 MG/DL (7-18); BUN/CREATININE RATIO 37.7 (10.0-20.0); CALCIUM 8.9 MG/DL (8.5-10.1); CHLORIDE 103 MMOL/L (99-107); CREATININE 0.69 MG/DL (0.40-0.90); GLUCOSE 100 MG/DL (70-104); POTASSIUM 3.8 MMOL/L (3.5-5.1); SODIUM 141 MMOL/L (135-145); TOTAL CARBON DIOXIDE 27.4 MMOL/L (24-32); TOTAL PROTEIN 7.2 G/DL (6.4-8.2); eGFR 82 ML/MIN
[2023-05-11] MEDS ORDERED: mag hydrox/Alum hydrox/simeth 30ml oral suspension PO ONE (20:25)
[2023-05-11] MEDS ORDERED: HYDROcodone/acetaminophen 5mg/325mg tablet PO ONE (20:25)
[2023-05-11 21:13] LABS: ANISOCYTOSIS 1+; HYPOCHROMASIA 2+; MICROCYTOSIS 1+; PLATELET ESTIMATE NORMAL; TOTAL CELLS COUNTED 100
[2023-05-11 23:00] VITALS: BP 160/70
--- NOTE | 2023-05-11 23:12 | NUR ---
IVETH RETURNED PAGE FOR TX PT BACK TO FACILITY
--- NOTE | 2023-05-11 23:40 | NUR ---
[facility] AT BEDSIDE FOR TX. RECEIVING FACILITY CALLED AND UPDATED STATUS
== END 2023-05-11 23:41 | disposition home or self-care (01) ==
LOC: ER 19:15
DX: R07.89 Other chest pain (principal); E78.00 Pure hypercholesterolemia, unspecified; I10 Essential (primary) hypertension; J44.9 Chronic obstructive pulmonary disease, unspecified; K21.9 Gastro-esophageal reflux disease without esophagitis; M19.90 Unspecified osteoarthritis, unspecified site; Z88.0 Allergy status to penicillin; Z88.5 Allergy status to narcotic agent; Z91.030 Bee allergy status; Z88.8 Allergy status to other drugs, medicaments and biological substances
CPT/HCPCS: 36415; 71045; 80053; 83880; 84484; 85007; 85025; 93005; 99285

== ENCOUNTER 2024-04-05 20:37 | Emergency (ER) | payer MEDICARE, MEDICAID ==
[~2024-04-05] VITALS: Ht 160 cm; Wt 59.1 kg
[~2024-04-05 20:37] MED LIST changes: +ROPI3TAB21 PO; -ROPI3TAB4 PO
[2024-04-05 21:46] LABS: ALANINE AMINOTRANSFERASE 18 U/L (12-78); ALBUMIN 3.1 G/DL (3.4-5.0); ALBUMIN/GLOBULIN RATIO 0.6 (1.1-1.5); ALKALINE PHOSPHATASE 96 IU/L (46-116); ANION GAP 10 (8-16); ASPARTATE AMINO TRANSFERASE 21 U/L (10-37); BILIRUBIN,TOTAL 0.1 MG/DL (0.1-1.0); BLOOD UREA NITROGEN 19 MG/DL (7-18); BUN/CREATININE RATIO 29.7 (10.0-20.0); CALCIUM 9.3 MG/DL (8.5-10.1); CHLORIDE 100 MMOL/L (99-107); CREATININE 0.64 MG/DL (0.40-0.90); GLUCOSE 146 MG/DL (70-104); POTASSIUM 3.6 MMOL/L (3.5-5.1); SODIUM 135 MMOL/L (135-145); TOTAL CARBON DIOXIDE 25.5 MMOL/L (24-32); eCRCL 57 ML/MIN; eGFR 89 ML/MIN
[2024-04-05 21:54] LABS: PRO BRAIN NATRIURETIC PEPTIDE 490 PG/ML (0-450)
[2024-04-05 21:56] LABS: EOSINOPHILS # (AUTO) 0.3 X10'3 (0-0.9); MEAN CORPUSCULAR HGB CONC 32.5 g/dL (33.0-36.5)
[2024-04-05 22:07] LABS: BASOPHILS # (AUTO) 0.1 X10'3 (0-0.2); BASOPHILS % (AUTO) 1.4 % (0-1); EOSINOPHILS % (AUTO) 4.7 % (0-6); HEMATOCRIT 35.8 % (35.0-45.0); HEMOGLOBIN 11.7 g/dl (12.0-16.0); LYMPHOCYTES # (AUTO) 1.5 X10'3 (1.1-4.8); MEAN CORPUSCULAR HEMOGLOBIN 25.7 PG (27.0-31.0); MEAN CORPUSCULAR VOLUME 79.1 FL (78-98); MEAN PLATELET VOLUME 6.7 FL (7.4-10.4); MONOCYTES # (AUTO) 1.1 X10'3 (0-0.9); MONOCYTES % (AUTO) 18.4 % (2-12); NEUTROPHILS # (AUTO) 2.9 X10'3 (1.8-7.7); NEUTROPHILS % (AUTO) 49.5 % (42-75); PLATELET COUNT 377 X10'3 (140-440); RED BLOOD COUNT 4.53 X10'6 (4.20-5.60); WHITE BLOOD COUNT 5.9 X10'3 (4.5-11.0)
[2024-04-05 23:22] LABS: ANISOCYTOSIS 2+; MICROCYTOSIS 1+; PLATELET ESTIMATE NORMAL; TOTAL CELLS COUNTED 100
[2024-04-06] MEDS: HYDROcodone/acetaminophen 5mg/325mg tablet PO ONE (01:00)
[2024-04-06 03:14] VITALS: BP 166/94; PULSE 78; RESP 14; TEMP 98.3; O2SAT 97
== END 2024-04-06 03:19 | disposition home or self-care (01) ==
LOC: ER 20:38
DX: S09.90XA Unspecified injury of head, initial encounter (principal); M25.552 Pain in left hip; M25.551 Pain in right hip; Z88.0 Allergy status to penicillin; Z88.8 Allergy status to other drugs, medicaments and biological substances; Z91.030 Bee allergy status; I25.10 Atherosclerotic heart disease of native coronary artery without angina pectoris; F03.90 Unspecified dementia, unspecified severity, without behavioral disturbance, psychotic disturbance, mood disturbance, and anxiety; E78.00 Pure hypercholesterolemia, unspecified; I10 Essential (primary) hypertension; I25.2 Old myocardial infarction; J45.909 Unspecified asthma, uncomplicated; J44.9 Chronic obstructive pulmonary disease, unspecified; K21.9 Gastro-esophageal reflux disease without esophagitis; M19.90 Unspecified osteoarthritis, unspecified site; G89.29 Other chronic pain; R06.03 Acute respiratory distress; W18.30XA Fall on same level, unspecified, initial encounter; Y93.89 Activity, other specified; Y92.89 Other specified places as the place of occurrence of the external cause; Y99.8 Other external cause status
CPT/HCPCS: 36415; 70450; 71045; 72125; 73521; 80053; 83880; 84484; 85007; 85025; 93005; 99285

== ENCOUNTER 2024-05-04 16:23 | Emergency (ER) | payer MEDICARE, MEDICAID ==
[~2024-05-04] VITALS: Ht 160 cm; Wt 63.2 kg
[2024-05-04 16:38] VITALS: TEMP 97.6
[2024-05-04 18:11] VITALS: BP 199/86; PULSE 70; RESP 18; O2SAT 97
== END 2024-05-04 19:02 | disposition home or self-care (01) ==
LOC: ER 16:24
DX: S13.4XXA Sprain of ligaments of cervical spine, initial encounter (principal); S70.01XA Contusion of right hip, initial encounter; S09.90XA Unspecified injury of head, initial encounter; F03.90 Unspecified dementia, unspecified severity, without behavioral disturbance, psychotic disturbance, mood disturbance, and anxiety; E78.00 Pure hypercholesterolemia, unspecified; I10 Essential (primary) hypertension; I25.2 Old myocardial infarction; J45.909 Unspecified asthma, uncomplicated; J44.9 Chronic obstructive pulmonary disease, unspecified; K21.9 Gastro-esophageal reflux disease without esophagitis; M19.90 Unspecified osteoarthritis, unspecified site; G89.29 Other chronic pain; S09.8XXA Other specified injuries of head, initial encounter; Z88.0 Allergy status to penicillin; Z88.8 Allergy status to other drugs, medicaments and biological substances; Z91.030 Bee allergy status; Z79.899 Other long term (current) drug therapy; Z86.73 Personal history of transient ischemic attack (TIA), and cerebral infarction without residual deficits; Z98.890 Other specified postprocedural states; W01.0XXA Fall on same level from slipping, tripping and stumbling without subsequent striking against object, initial encounter; Y93.89 Activity, other specified; Y92.89 Other specified places as the place of occurrence of the external cause; Y99.8 Other external cause status
CPT/HCPCS: 70450; 72125; 73502; 99284

== ENCOUNTER 2024-07-03 19:22 | Emergency (ER) | payer MEDICARE, MEDICAID ==
[~2024-07-03] VITALS: Ht 162.6 cm; Wt 71.0 kg
[2024-07-03 19:54] LABS: BASOPHILS # (AUTO) 0.1 X10'3 (0-0.2); BASOPHILS % (AUTO) 1.3 % (0-1); EOSINOPHILS # (AUTO) 0.5 X10'3 (0-0.9); EOSINOPHILS % (AUTO) 7.2 % (0-6); HEMATOCRIT 26.5 % (35.0-45.0); LYMPHOCYTES # (AUTO) 1.4 X10'3 (1.1-4.8); LYMPHOCYTES % (AUTO) 19.8 % (21-51); MEAN CORPUSCULAR HEMOGLOBIN 22.7 PG (27.0-31.0); MEAN CORPUSCULAR HGB CONC 30.4 g/dL (33.0-36.5); MEAN CORPUSCULAR VOLUME 74.7 FL (78-98); MEAN PLATELET VOLUME 6.7 FL (7.4-10.4); MONOCYTES # (AUTO) 1.1 X10'3 (0-0.9); MONOCYTES % (AUTO) 15.9 % (2-12); NEUTROPHILS % (AUTO) 55.8 % (42-75); PLATELET COUNT 349 X10'3 (140-440); RED BLOOD COUNT 3.54 X10'6 (4.20-5.60); RED CELL DISTRIBUTION WIDTH 18.6 % (11.5-14.5); WHITE BLOOD COUNT 7.2 X10'3 (4.5-11.0)
[2024-07-03 20:07] LABS: ALANINE AMINOTRANSFERASE 25 U/L (12-78); ALBUMIN 3.2 G/DL (3.4-5.0); ALBUMIN/GLOBULIN RATIO 0.7 (1.1-1.5); ALKALINE PHOSPHATASE 80 IU/L (46-116); ANION GAP 7 (8-16); ASPARTATE AMINO TRANSFERASE 27 U/L (10-37); BILIRUBIN,TOTAL 0.2 MG/DL (0.1-1.0); BLOOD UREA NITROGEN 35 MG/DL (7-18); CALCIUM 9.1 MG/DL (8.5-10.1); CHLORIDE 101 MMOL/L (99-107); CREATININE 1.03 MG/DL (0.40-0.90); GLUCOSE 126 MG/DL (70-104); POTASSIUM 4.3 MMOL/L (3.5-5.1); SODIUM 135 MMOL/L (135-145); TOTAL CARBON DIOXIDE 27.4 MMOL/L (24-32); TOTAL PROTEIN 7.5 G/DL (6.4-8.2); eCRCL 37 ML/MIN; eGFR 51 ML/MIN
[2024-07-03 20:20] LABS: HYPOCHROMASIA 1+; MICROCYTOSIS 1+; PLATELET ESTIMATE NORMAL; TARGET CELLS FEW; TOTAL CELLS COUNTED 100
[2024-07-03 20:21] LABS: ANISOCYTOSIS 2+
[2024-07-04] MEDS ORDERED: HYDR-3965 PO (03:04)
[2024-07-04 06:19] VITALS: BP 122/70; PULSE 82; RESP 16; TEMP 98.7; O2SAT 98
== END 2024-07-04 06:50 | disposition home or self-care (01) ==
LOC: ER 19:23
DX: R07.9 Chest pain, unspecified (principal); F03.90 Unspecified dementia, unspecified severity, without behavioral disturbance, psychotic disturbance, mood disturbance, and anxiety; G20.A1 Parkinson's disease without dyskinesia, without mention of fluctuations; E78.00 Pure hypercholesterolemia, unspecified; I10 Essential (primary) hypertension; I25.2 Old myocardial infarction; J45.909 Unspecified asthma, uncomplicated; J44.9 Chronic obstructive pulmonary disease, unspecified; K21.9 Gastro-esophageal reflux disease without esophagitis; M19.90 Unspecified osteoarthritis, unspecified site; G89.29 Other chronic pain; Z98.890 Other specified postprocedural states; Z88.0 Allergy status to penicillin; Z91.030 Bee allergy status; Z79.899 Other long term (current) drug therapy; Z86.73 Personal history of transient ischemic attack (TIA), and cerebral infarction without residual deficits
CPT/HCPCS: 36415; 71045; 80053; 84484; 85007; 85025; 93005; 99285